=== PATIENT | male | born 1945 | race Caucasian/White ===

== ENCOUNTER 2017-02-25 11:53 | Inpatient (IN) | payer MEDICARE, BC ==
[2017-02-25] MEDS ORDERED: NS 0.9% 1000 ML* 1,000 ML IV ONE ×2 (12:00→14:16)
[2017-02-25 12:15] LABS: Hematocrit 42 % (42-52); Hemoglobin 14.8 g/dl (14.0-18.0); Mean Corpuscular HGB Conc 35 g/dl (31-36); Mean Corpuscular Hemoglobin 27 pg (27-31); Mean Corpuscular Volume 77 fL (80-94); Mean Platelet Volume 8 um3 (7.4-10.4); Red Blood Count 5.51 10^6/ul (4.0-5.4); Red Cell Distribution Width 15 % (10.5-15); White Blood Count 28.1 10^3/ul (3.5-10.8)
[2017-02-25 12:16] LABS: Add Diff/Slide Review? Slide Review Added; Comments Flag Yes
--- NOTE | 2017-02-25 12:33 | RAD ---
HISTORY: Aphasia, fall, right-sided weakness COMPARISONS: None TECHNIQUE: Multiple contiguous axial CT scans were obtained of the cervical spine without intravenous contrast, with coronal and sagittal multiplanar reformations. FINDINGS: BRAIN: The visualized brain is unremarkable CENTRAL CANAL: Evaluation of the central canal is limited on CT technique; however, there is no obvious canalicular mass or epidural hemorrhage. ALIGNMENT: The alignment is normal, without subluxation or dislocation. VERTEBRAL BODIES: There is multilevel anterolateral marginal osteophyte formation. There is no displaced fracture. JOINTS: There is osteoarthritis of the atlantoaxial articulation. There is diffuse uncovertebral and facet osteoarthritis. MUSCULATURE: Unremarkable INTERVERTEBRAL DISCS: There is diffuse loss of intervertebral disc height. AXIAL IMAGES: C2-C3: There is bilateral uncovertebral hypertrophy. There is mild bilateral neural foraminal narrowing. There is no osseous central canal stenosis. C3-C4: There is bilateral uncovertebral and facet hypertrophy. There is severe bilateral neural foraminal narrowing. There is a small central disc protrusion measuring 0.3 cm in depth. There is no significant central canal stenosis. C4-C5: There is a broad-based disc bulge. There is bilateral uncovertebral and facet hypertrophy. There is moderate left and severe right neural foraminal narrowing. There is mild narrowing of the central canal. C5-C6: There is bilateral uncovertebral and facet hypertrophy. There is severe bilateral neural foraminal narrowing. There is mild narrowing of the central canal. C6-C7: There is bilateral uncovertebral hypertrophy. There is moderate bilateral neural foraminal narrowing. There is no osseous central canal stenosis. C7-T1: There is no osseous neural foraminal narrowing or central canal stenosis. SOFT TISSUES: The visualized soft tissues of the neck are unremarkable. The prevertebral fat stripe is preserved. OTHER: None. IMPRESSION: 1. DEGENERATIVE DISC DISEASE AND OSTEOARTHRITIS. 2. THERE IS MILD NARROWING OF THE CENTRAL CANAL AT C4-C5 AND C5-C6. 3. THERE IS MULTILEVEL NEURAL FORAMINAL NARROWING DESCRIBED ABOVE.
[2017-02-25 12:34] LABS: ALT 17 U/L (7-52); AST 30 U/L (13-39); Albumin 4.3 g/dL (3.2-5.2); Alkaline Phosphatase 68 U/L (34-104); Anion Gap 14 mmol/L (2-11); BUN/Creatinine Ratio 42.5 (8-20); Blood Urea Nitrogen 45 mg/dL (6-24); CO2 Carbon Dioxide 35 mmol/L (22-32); Calcium 9.6 mg/dL (8.6-10.3); Chloride 75 mmol/L (101-111); Cholesterol 170 mg/dL; EGFR African American 89.1 (>60); EGFR Non-African American 69.3 (>60); Globulin 2.8 g/dL (2-4); Glucose 174 mg/dL (70-100); HDL Cholesterol 35.8 mg/dL; LDL Cholesterol 104 mg/dL; Sodium 124 mmol/L (133-145); Total Protein 7.1 g/dL (6.4-8.9); Triglycerides 151 mg/dL
--- NOTE | 2017-02-25 12:34 | RAD ---
Indication: Neurologic changes. Aphasia and right-sided weakness. CT of the brain was performed without IV contrast. Ventricular structures are midline. No midline shift is noted. There is central and cortical atrophy noted. There are chronic ischemic White matter changes with hypodensity throughout the periventricular white matter extending into the subcortical white matter. Findings are similar to that seen on May 07, 2013. Mastoid air cells and paranasal sinuses are otherwise unremarkable. IMPRESSION: Central and cortical atrophy. Periventricular lucency and subcortical lucency consistent with chronic ischemic White matter change. Paranasal sinuses are clear. Findings discussed with Dr. Shipman at 12:29 PM.
[2017-02-25 12:44] LABS: Troponin I 0.04 ng/mL (<0.04)
--- NOTE | 2017-02-25 12:58 | RAD ---
Indication: Code junior. Neurologic changes. Single frontal view of the chest performed at 1236 hours was reviewed. Comparison is made with previous exam dated April 15, 2010. No mediastinal shift is noted. Heart is of normal size and configuration. Lung mi appear clear. IMPRESSION: NO ACTIVE CARDIOPULMONARY DISEASE IS NOTED.
[2017-02-25 13:00] LABS: C Reactive Protein 132.46 mg/L (< 5.00)
[2017-02-25] MEDS ORDERED: Aspirin EC Low Dose* 81 MG TAB.EC PO ONE (13:24)
[2017-02-25 13:33] LABS: Urine Bacteria Absent (Absent); Urine Bilirubin Negative (Negative); Urine Glucose Negative (Negative); Urine Nitrite Negative (Negative)
[2017-02-25 13:34] LABS: Alcohol < 10 mg/dL (<10); Lithium 0.16 mmol/L (0.6-1.2)
[2017-02-25] MEDS: KCL 10 MEQ/50 ML IVPREMIX* 10 MEQ/50 ML BAG IV SCH ×5 (13:37→22:29)
[2017-02-25] MEDS ORDERED: Thiamine IV* 100 MG/ML 2 ML VIAL IM ONE (13:43)
[2017-02-25 14:04] LABS: Magnesium 2.5 mg/dL (1.9-2.7)
[2017-02-25] MEDS ORDERED: Ondansetron INJ* 2 MG/ML VIAL IV PRN (14:16)
[2017-02-25] MEDS ORDERED: Acetaminophen TAB* 325 MG PO PRN (14:16)
[2017-02-25] MEDS ORDERED: Dextrose 50% Syringe 50 ML* 25 GM/50 ML SYRINGE IV PUSH PRN (14:22)
[2017-02-25] MEDS ORDERED: PROCHLORPERAZINE INJ 5 MG/ML 2 ML VIAL IV PRN (14:23)
[2017-02-25 14:25] LABS: TSH (Thyroid Stimulating Horm) 2.27 mcIU/mL (0.34-5.60)
[2017-02-25 14:29] LABS: Free T4 1.64 ng/dL (0.61-1.12)
[2017-02-25 14:30] LABS: Benzodiazepine Urine Screen None Detected (None Detect)
[2017-02-25 14:35] LABS: Erythrocyte Sed Rate 23 mm/Hr (0-40)
[2017-02-25 15:03] LABS: Creatine Kinase 130 U/L (10-223)
--- NOTE | 2017-02-25 15:22 | RAD ---
HISTORY: Altered mental status, slurred speech, right facial droop, incontinence COMPARISONS: Head CT dated February 25, 2017 TECHNIQUE: The following sequences were obtained of the head: Sagittal T1-weighted images, axial T2-weighted images, axial FLAIR images, axial susceptibility weighted images, axial T1-weighted images. Additionally, axial diffusion-weighted images were obtained with calculated apparent diffusion coefficients. FINDINGS: HEMORRHAGE/INFARCT: There is associated diffusion consistent with subacute nonhemorrhagic infarct of the left frontoparietal periventricular white matter. Elsewhere, there is no hemorrhage or acute infarct. MASSES/SHIFT: There is no mass or shift. EXTRA-AXIAL SPACES/MENINGES: There are no extra-axial fluid collections. SULCI AND VENTRICLES: There is mild diffuse and proportional enlargement of the sulci and ventricles. CEREBRUM: There is diffusely elevated T2/FLAIR signal in the periventricular and subcortical white matter, including the areas of restricted diffusion noted BRAINSTEM: There are no focal parenchymal abnormalities. CEREBELLUM: There are no focal parenchymal abnormalities. The cerebellar tonsils are normal in size and position. SELLA: The sella is normal. PINEAL: The pineal region is clear. CP ANGLE/TEMPORAL BONES: The labyrinthine structures are grossly normal. VESSELS: Normal flow-voids are noted within the visualized vertebral vasculature. DIFFUSION ABNORMALITIES: As noted above, there are multiple small areas of restricted diffusion within the left frontal and parietal periventricular white matter. PARANASAL SINUSES/MASTOIDS: The paranasal sinuses are clear. There is a small left mastoid effusion. ORBITS: The orbits are unremarkable. BONES AND SOFT TISSUE: No bone or soft tissue abnormalities are noted. OTHER: None IMPRESSION: 1. THERE ARE MULTIPLE SMALL AREAS OF RESTRICTED DIFFUSION WITH A LEFT FRONTAL AND PARIETAL PERIVENTRICULAR WHITE MATTER, CONSISTENT WITH SUBACUTE NONHEMORRHAGIC INFARCT. 2. THERE ARE EXTENSIVE WHITE MATTER CHANGES WITHIN THE PERIVENTRICULAR AND SUBCORTICAL WHITE MATTER BILATERALLY. WHILE NONSPECIFIC, THE DIFFERENTIAL INCLUDES CHRONIC SMALL VESSEL ISCHEMIC CHANGE, WELL THE SEQUELA OF PREVIOUS INFECTION OR INFLAMMATION, INCLUDING VASCULITIS, WELL ADVANCED DEMYELINATING DISEASE..
[2017-02-25] MEDS: cefTRIAXone VIAL(*) 1,000 MG in NS 0.9% 50 ML* 50 ML IVPB SCH ×3 (15:42)
[2017-02-25] MEDS ORDERED: cloNIDine 0.2 MG PATCH* 0.2 MG/24 HR 7 DAY PATCH TRANSDERM SCH (16:00)
[2017-02-25] MEDS: NS 0.9% 1000 ML* 1,000 ML IV SCH (16:11)
[2017-02-25] MEDS: Insulin LISPRO* 1 UNITS UNIT SUBCUT SCH (16:29)
[2017-02-25 16:45] LABS: Venous Bicarbonate HCO3 32.4 mmol/L (24-28)
[2017-02-25] MEDS ORDERED: PROCHLORPERAZINE INJ 5 MG/ML 2 ML VIAL IV ONE (17:00)
--- NOTE | 2017-02-25 19:01 | ED ---
Rc Stratton Angela, scribed for Ras Shipman MD on 02/25/17 at 1204 . Neurological HPI - HPI Summary HPI Summary: MARANDA ESPITIA CALLED OVERHEAD AT 11:58. This pt is a 71 y/o male accompanied by his son presenting to [facility] for a possible stroke. Son reports he found the pt in his apartment. Son states that he calls his father every couple of days to check in and over the last week and today he had no answer from the pt, so he went to his apartment today. Son called the pt 45 minutes to 1 hour ago and found him having difficulty to speak. Son notes that pt opened the door for him upon arriving to his apartment and pt was ambulating. Per son, pt is able to say words but is having difficulty. When asked when the pt fell, he states 3 days ago. Per son, pt had a stroke 1.5 months ago, but his speech was not affected. Son reports the pt at baseline does not have any facial droops and asymmetric smile is not normal. The last time the son saw the pt normal was 1.5 weeks to 2 weeks ago. Per son, the pt lives by himself. PMHx includes CVA. Pt is currently on Insulin, anti-depressants (lithium?). PCP : Dr. Vega. Since arrival to the ED, the son notes no real change in pt. Glucose sugar in the ED is 149. - History of Current Complaint Stated Complaint: POSSIBLE STROKE, Time Seen by Provider: 02/25/17 11:59 Hx Obtained From: Patient, Family/Water Quality Specialist - son Onset/Duration: Still Present Timing: Sudden Onset Neurological Deficit Location: Facial - and speech Character: Paralysis - minor, Impaired Speech Associated Signs and Symptoms: Positive: Impaired Speech - Allergy/Home Medications Allergies/Adverse Reactions: Allergies Allergy/AdvReac Type Severity Reaction Status Date / Time Doxepin Allergy Shakes Verified 02/25/17 12:57 Hydrochlorothiazide Allergy Rash Verified 02/25/17 12:57 Lisinopril Allergy Difficulty Verified 02/25/17 12:57 Breathing Home Medications: Home Medications Atorvastatin* [Lipitor*] 20 mg PO DAILY 02/25/17 [History Confirmed 02/25/17] BuPROPion XL* [Bupropion XL*] 300 mg PO DAILY 02/25/17 [History Confirmed ] Gabapentin CAP(*) [Neurontin 100 mg CAP(*)] 100 mg PO QAM 02/25/17 [History Confirmed 02/25/17] Gabapentin CAP(*) [Neurontin 300 CAP(*)] 600 mg PO BEDTIME 02/25/17 [History Confirmed 02/25/17] Insulin Aspart [Novolog Flexpen] 10 unit SUBCUT TID WITH MEALS 02/25/17 [ History Confirmed 02/25/17] Insulin GLARGINE(*) [Lantus(*)] 50 units SUBCUT BID 02/25/17 [History Confirmed 02/25/17] [place] Carbonate ER (NF) 300 mg PO BEDTIME 02/25/17 [History Confirmed 02/25/17 ] Losartan TAB* [Cozaar TAB*] 50 mg PO DAILY 02/25/17 [History Confirmed 02/25/17] Metoprolol Tartrate TAB* [Lopressor TAB*] 25 mg PO BID 02/25/17 [History Confirmed 02/25/17] Mirtazapine TAB* [Remeron TAB*] 15 mg PO BEDTIME 02/25/17 [History Confirmed ] buPROPion SR TAB* [Wellbutrin SR TAB*] 150 mg PO BID 02/25/17 [History Confirmed 02/25/17] busPIRone TAB* [Buspar TAB*] 10 mg PO BID 02/25/17 [History Confirmed 02/25/17] cloNIDine 0.2 MG PATCH* [Xnigmqxz-Aoh-0 0.2 mg Patch*] 0.2 mg TRANSDERM Q7D [History Confirmed 02/25/17] metFORMIN* [Glucophage 500 MG TAB *] 500 mg PO BID 02/25/17 [History Confirmed 02/25/17] PMH/Surg Hx/FS Hx/Imm Hx Cardiovascular History: Reports: Hx Hypercholesterolemia, Hx Hypertension Musculoskeletal History: Reports: Other Musculoskeletal History - foot fracture with repair Psychiatric History: Reports: Hx Attention Deficit Hyperactivity Disorder, Hx Substance Abuse Denies: Hx Eating Disorder, Hx of Violent Episodes Against Others - Cancer History Cancer Type, Location and Year: prostate cs - Surgical History Surgery Procedure, Year, and Place: deviated septal repair. prostate removal. uvula reduction. right ankle foot repair Infectious Disease History: Denies: Traveled Outside the [place] in Last 30 Days - Family History Known Family History: Positive: Other - Mother: anxiety and depression - Social History Alcohol Use: None Substance Use Type: Reports: Marijuana Review of Systems Negative: Fever, Chills Negative: Erythema Negative: Sore Throat Negative: Chest Pain Negative: Shortness Of Breath, Cough Negative: Abdominal Pain, Vomiting, Nausea Negative: dysuria, hematuria Negative: Myalgia, Edema - leg Negative: Rash Neurological: Negative - dizziness, Other - difficulty speaking, facial droop All Other Systems Reviewed And Are Negative: Yes Physical Exam - Summary Physical Exam Summary: Constitutional: Well-developed, Well-nourished, Alert. (-) Distressed Skin: Warm, Dry HENT: Normocephalic; Atraumatic Eyes: Conjunctiva normal Neck: Musculoskeletal ROM normal neck. (-) JVD, (-) Stridor, (-) Tracheal deviation Cardio: Rhythm regular, rate normal, Heart sounds normal; Intact distal pulses; The pedal pulses are 2+ and symmetric. Radial pulses are 2+ and symmetric. (-) Murmur Pulmonary/Chest wall: Effort normal. (-) Respiratory distress, (-) Wheezes, (-) Rales Abd: Soft. (-) Tenderness, (-) Distension, (-) Guarding, (-) Rebound Musculoskeletal: (-) Edema Lymph: (-) Cervical adenopathy Neuro: Alert, Oriented x3, Strength normal, (-) Nystagmus, (-) Ataxia by finger to nose testing, (-) Sensory deficit. There is some dysmetria from finger to nose on right hand. There is right facial droop. Smile is asymmetric. There is right pronator drift. Psych: Mood and affect Normal Triage Information Reviewed: Yes Vital Signs Reviewed: Yes Diagnostics - Laboratory Result Diagrams: 02/25/17 12:05 02/25/17 12:05 Lab Statement: Any lab studies that have been ordered have been reviewed, and results considered in the medical decision making process. - Radiology Chest XR Xray Interpretation: No Acute Changes - IMPRESSION: No active cardiopulmonary disease is noted. ED physician has reviewed this radiology report and agrees. Radiology Interpretation Completed By: Radiologist - CT Brain CT CT Interpretation: Positive (See Comments) - IMPRESSION: Central and cortical atrophy. Periventricular lucency and subcortical lucency consistent with chronic ischemic white matter change. Paranasal sinuses are clear. ED physician has reviewed this radiology report and agrees. CT Interpretation Completed By: Radiologist Cervical spine CT CT Interpretation: No Acute Changes - IMPRESSION: 1. Degenerative disc disease and osteoarthritis. 2. There is mild narrowing of the central canal at C4-C5 and C5-C6. 3. There is multilevel neural foraminal narrowing as described above. ED physician has reviewed this radiology report and agrees. CT Interpretation Completed By: Radiologist - EKG 1226 Cardiac Rate: NL EKG Rhythm: Sinus Rhythm - at 88 bpm EKG Interpretation: No STEMI NIH Scale - NIH Scale Level of Consciousness: Alert/Keenly Responsive Ask Patient the Month and His/Her Age: Both Correct Ask Pt to Open/Close Eyes and Ceramic Tile Installation Helper/Release Non-Paretic Hand: Both Correctly Best Gaze (Only Horizontal Eye Movement): Normal Visual Field Testing: No Visual Loss Facial Paresis-Pt to Smile & Close Eyes or Grimace Symmetry: Minor Paralysis Motor Function - Right Arm: No Drift-Holds 10 Seconds Motor Function - Left Arm: No Drift-Holds 10 Seconds Motor Function - Right Leg: No Drift-Holds 10 Seconds Motor Function - Left Leg: No Drift-Holds 10 Seconds Limb Ataxia-Must be out of Proportion to Weakness Present: Present in One Limb Sensory (Use Pinprick to Test Arms/Legs/Trunk/Face): Normal Best Language (Describe Picture, Name Items): Some Loss Dysarthria (Read Several Words): Slurs Some Words Extinction and Inattention: No Abnormality Total Score: 4 Course/Dx - Course Assessment/Plan: This pt is a 71 y/o male accompanied by his son presenting to [facility] for a possible stroke. Son reports he found the pt in his apartment. Son states that he calls his father every couple of days to check in and over the last week and today he had no answer from the pt, so he went to his apartment today. Son called the pt 45 minutes to 1 hour ago and found him having difficulty to speak. Son notes that pt opened the door for him upon arriving to his apartment and pt was ambulating. Per son, pt is able to say words but is having difficulty. When asked when the pt fell, he states 3 days ago. Per son, pt had a stroke 1.5 months ago, but his speech was not affected. Son reports the pt at baseline does not have any facial droops and asymmetric smile is not normal. The last time the son saw the pt was 1.5 weeks to 2 weeks ago, and the pt was normal. Maranda Espitia was called in the ED. Lab work, Chest XR, CT brain, CT cervical spine, and EKG were obtained. Labs are significant for WBC of 28.1, sodium of 124, potassium of 3.0, glucose of 174, CRP of 132.46, troponin of 0.04. Chest XR shows no active cardiopulmonary disease is noted. Brain CT shows central and cortical atrophy. Periventricular lucency and subcortical lucency consistent with chronic ischemic white matter change. Paranasal sinuses are clear. Cervical spine CT reveals 1. Degenerative disc disease and osteoarthritis. 2. There is mild narrowing of the central canal at C4-C5 and C5- C6. 3. There is multilevel neural foraminal narrowing as described above. EKG shows no STEMI. Dr. Cornell came and assessed the pt in the ED. I discussed the pt's case with Dr. Vera, who has agreed to admit the pt. - Diagnoses Provider Diagnoses: Hyponatremia, Hypokalemia, Leukocytosis, CVA (cerebral vascular accident) During the Visit The Following Alert/Code Occurred: Maranda Espitia - 11:58 - Physician Notifications Discussed Care Of Patient With: Nikita Vera Instructed by Provider To: Other - I discussed the pt's case with Dr. Vera, who has agreed to admit the pt. - Critical Care Time Critical Care Time: 30-74 min - 60 minutes Discharge - Discharge Plan Condition: Stable Disposition: ADMITTED TO [facility] The documentation as recorded by the Rc fontenot Angela accurately reflects the service I personally performed and the decisions made by , Ras Shipman MD.
[2017-02-25 20:15] LABS: Potassium 2.8 mmol/L (3.5-5.0)
[2017-02-25 20:16] LABS: BUN/Creatinine Ratio 38.5 (8-20); Calcium 8.2 mg/dL (8.6-10.3); EGFR African American 99.9 (>60); EGFR Non-African American 77.7 (>60)
[2017-02-25 20:17] LABS: Troponin I 0.02 ng/mL (<0.04)
[2017-02-25] MEDS ORDERED: Potassium Chlor TAB* 20 MEQ TAB.ER PO ONE (20:19)
[2017-02-25] MEDS: Omeprazole CAP* 20 MG PO SCH (21:43)
[2017-02-25] MEDS: Metoprolol Tartrate TAB* 25 MG PO SCH (21:44)
[2017-02-25] MEDS: Insulin GLARGINE(*) 1 UNITS UNIT SUBCUT SCH (21:45)
[2017-02-25] MEDS ORDERED: KCL premix 10MEQ/50 ML x 1 TIME IV ONE (22:00)
--- NOTE | 2017-02-25 22:23 | CONS ---
NEUROLOGY CONSULTATION REPORT: DATE OF CONSULT: 02/25/17 REFERRING PROVIDER: Dr. Ras Shipman. PRIMARY CARE PROVIDER: Dr. Tennille Vega. LOCATION: He is in the emergency to be admitted. CHIEF COMPLAINT: Diminished responsiveness, weakness. HISTORY OF PRESENT ILLNESS: Rashaun Padilla is a 71-year-old right-handed man who was last seen by his son about 3 days ago when he went to visit him this morning. He got there about 11 and Rashaun answered the door naked. The house was a mess with feces and urine about. He had a bruise over his right eye. He was brought into the emergency room and a Code Sharma was called. Six weeks ago, he has had right- sided weakness and difficulty with language and presented to his primary care physician a week after onset of symptoms. This history was from his son largely as the patient is psychomotorically slow and I do not have any other records yet. He apparently was evaluated as an outpatient, but I do not have any other details. The patient says he stopped taking his medications some number of days ago because he "lost patience." He admits he has not been eating and he says he has been drinking water. He has a history of psychiatric disease with 2 prior psychiatric hospitalizations. He had hospitalization in the mental health unit in 2013, when he was drinking heavily and using cannabis and was having some delusional thinking. He has a history of depression as well. He also apparently has a history of diabetes and says he has not been taking his medications. He says he fell out of this "tripod bed" several days ago. He responds very sluggishly and is hard to get a coherent history out of him. He has multiple electrolyte abnormalities and an elevated white blood cell count described below. PAST MEDICAL HISTORY: Notable for psychiatric disorder; alcoholism; prostate adenocarcinoma, treated with surgery; history of pyloric stenosis; hypertension ; gastroesophageal reflux. MEDICATIONS: We do not have an up-to-date medication list and he has not been taking any medicines, he says. ALLERGIES: He listed he is having allergies to LISINOPRIL, HYDROCHLOROTHIAZIDE , and DOXEPIN. SOCIAL HISTORY: He says he has not been drinking alcohol. He still smokes. He is . He lives alone. PHYSICAL EXAM: He is disheveled with tobacco stains in his fingers and is generally unkempt and unwashed. Temperature 98 degrees by temporal scan, blood pressure running about 130 to 140 systolic over 70 to 80 diastolic. Heart rate is in the 90s and is sinus on the monitor, respiratory rate 23, oxygen saturation is 98% on room air. He has ecchymosis, which looks at least a couple of days old over his right lateral eyebrow. Head is otherwise atraumatic. Oral mucosa is moist and atraumatic. Neck is supple. Heart is in a regular rhythm with distant heart tones and I do not hear murmurs. Lungs reveal few scattered wheezes. Carotid pulses are hard to hear as he is hiccupping fairly constantly, but I do not hear any bruits. Neurologically, pupils react equally from 4 to 3 mm. Eye movements are full with nystagmus in extremes of lateral gaze. Visual mi are full to finger counting in all 4 quadrants. Facial musculature is notable for central pattern right lower facial weakness. Facial sensation to pin and light touch is symmetric. Palate and tongue appear normal and tongue protrudes in the midline. He has mild buccal dysarthria. Hearing seems intact. Neck strength seems intact. Motor exam reveals a mild spastic catch in the right leg. He has a right pronator drift. He has a grade 4 right hip flexor weakness. He has pretty normal strength in left arm and leg. Finger taps are slow and clumsy bilaterally, much worse on the right. Sensory exam is intact to light touch in the distal extremities symmetrically. Sensory exam to pin is symmetrical in upper and lower extremities. Reflexes are intact and symmetric in biceps, triceps, and brachioradialis, and knees. Ankle reflexes are absent bilaterally. Plantar response is flexor on the left and he has a right Babinski sign. He is semi alert and psychomotorically slow. He is able to converse throughout the visit without disruption in consciousness. He has no word-finding difficulty and is somewhat dysarthric. Some of the words seemed to be nonsense words. He is a poor historian with clearly impaired memory. DIAGNOSTIC STUDIES/LAB DATA: Includes a CT of the brain which I reviewed and which reveals multifocal areas of subcortical hypodensity consistent with severe chronic ischemic disease. CT scan of the cervical spine reveals arthritis, but no acute traumatic changes. EKG reveals a prolonged QT interval and a short FL interval. Chemistry profile is floridly abnormal with sodium 124, potassium 3.0, chloride 75, carbon dioxide 35, anion gap 14, BUN 45, and creatinine 1.06. Glucose is elevated at 174, total bilirubin elevated 1.8, lactic acid normal at 1.8, and calcium at 9.6. Albumin is 4.3. Troponin is borderline at 0.04. INR is elevated at 1.41. CBC notable for white blood cell count 28.1 with slight left shift, 84.5% neutrophils. Hemoglobin is 14.8, MCV low at 77, platelet count 290 ,000. A urinalysis notable for specific gravity 1.023, pH 5.0, 1+ ketones, 1+ blood, positive urobilinogen. Leukocyte esterase is negative and there is trace white blood cells and absent bacteria. Alcohol level is undetectable, lithium level is present, but low at 0.16. IMPRESSION AND PLAN: Impression is that of recent cerebrovascular event, but currently major metabolic disorder including acidosis and possibly hepatic insufficiency given his history of alcoholism. His liver enzymes are normal but his total bilirubin is elevated as his INR. Discussed my impression with Dr. Shipman and Tavo Alarcon, YOLANDA, is currently starting his evaluation of Mr. Padilla. He has been given some supplemental potassium and I have written for 100 mg of IM thiamine. I recommended MRI of the brain to see if there has been recent infarction or acute infarction and aspirin 81 mg and hold off on further dose of aspirin until we get the MRI and make sure that he is not having any intestinal bleeding given his history of intestinal problems and his low MCV. Also, he may be more anemic than is evident that he is likely dehydrated and that may change. I follow him along with you. [id number]/[facility] #: [id number] [facility]
--- NOTE | 2017-02-25 23:38 | HP ---
CC: Dr. Vega; Dr. Cornell * HISTORY AND PHYSICAL: DATE OF ADMISSION: 02/25/17 PRIMARY CARE PROVIDER: Dr. Vega. ATTENDING PHYSICIAN WHILE IN THE HOSPITAL: Nikita Vera MD * (report dictated by Tavo Alarcon NP). CONSULTING NEUROLOGIST: Dr. Cornell. CHIEF COMPLAINT: 1. Right-sided weakness. 2. Altered mental status. HISTORY OF PRESENT ILLNESS: Mr. Padilla is a 71-year-old male patient who about 6 weeks ago had a CVA. He actually was worked up as an outpatient because he did not present for 1 week after his symptoms and he had apparently a workup done at [facility]. We will try to get those records. He apparently comes in today. He is a vague historian. He does have difficulty with expressive aphasia, which his son says that it seems much worse. Apparently the last week, the patient has been having some nausea and vomiting. No abdominal pain. No fevers or chills. No reports of URI type symptoms. No reports of arthralgias or myalgias and no recent sick contacts the son is aware of. He apparently 3 days ago fell, it is unclear how long he was on the floor for. The patient did report that he has been vomiting 3 to 4 times a day. He has been having more difficulty with saying his words. I ask him if he feels like the words are on the tip of his tongue and he just cannot get them out and he says, yes. The son called him 3 days ago, had no response. Called him yesterday, no response. Today he called again, no response and decided he is going to check on his father which he did. The patient apparently has not been taking his medications in the last week. He has been having difficulty with vomiting. He denies having any shortness of breath or chest pain. He says he has not noticed any rashes. He says he has not been eating or drinking. He came into the ED because when the son found him today, he was notably more confused, having trouble with his words. He was covered in feces, so they brought him into the ER and he was evaluated and found to have several lab abnormalities and we were asked to evaluate for admission. PAST MEDICAL HISTORY: Significant for: 1. Pyloric stenosis. 2. Hypertension. 3. GERD. 4. CVA. 5. Diabetes. 6. Prostate cancer. 7. Hyperlipidemia. 8. Bipolar disorder. 9. Depression. 10. Anxiety. PAST SURGICAL HISTORY: He has had a prostatectomy. MEDICATIONS: Home meds include: 1. Norvasc 10 mg daily. 2. Lipitor 20 mg daily. 3. BuSpar 10 mg p.o. b.i.d. 4. Wellbutrin 150 mg p.o. b.i.d. 5. Cozaar 50 mg daily. 6. Gabapentin 600 mg at bedtime, 100 mg in the morning. 7. Bupropion XL 300 mg p.o. daily. 8. He is also on metformin 500 mg p.o. b.i.d. 9. Prilosec 20 mg b.i.d. 10. Multivitamin 1 tablet daily. 11. Remeron 15 mg p.o. at bedtime. 12. Lopressor 25 mg p.o. b.i.d. 13. Posey carbonate 300 mg p.o. at bedtime. 14. Lantus 50 units subcu b.i.d. 15. Insulin aspart 10 units subcu t.i.d. with meals. 16. Clonidine 0.2 mg patch every 7 days. ALLERGIES TO MEDICATIONS: Include DOXEPIN, HYDROCHLOROTHIAZIDE, and LISINOPRIL. FAMILY HISTORY: I specifically asked the patient if his mother or father did have any heart disease, strokes or cancers, he denied. He states they just of old age. SOCIAL HISTORY: He does not smoke. He does smoke marijuana daily. He does not drink alcohol. Surrogate decision maker is his son, Star. REVIEW OF SYSTEMS: There is no documented fever. Denied any significant weight change. There was no double vision. Denies having any ear discharge. No rhinorrhea. No sore throat. No thyroid enlargement. Denied any chest pain. No orthopnea. No nocturnal dyspnea. There was no abdominal pain. There was some nausea and vomiting. No dysuria. No frequency. No loss of consciousness was reported. There was a fall. No pruritus. No skin ulcerations. Review of 14 systems completed, all others negative. PHYSICAL EXAMINATION GENERAL: At this time, Mr. Padilla is a 71-year-old male patient. He is chronically ill appearing. He is sitting in the ER stretcher. He does not appear to be in any acute distress. VITAL SIGNS: Blood pressure 137/69 with a pulse of 86, respirations were 20, O2 sat 98%, temperature 98. HEENT: Head atraumatic. Eyes: EOMs are intact. Sclerae anicteric and not pale. NECK: Supple. Throat: Oral mucosa appears to be dry, no oropharyngeal erythema. LUNGS: Clear to auscultation bilaterally. No wheezes, rales, or rhonchi. HEART: Sounds S1 and S2. No murmurs, rubs, or gallops. ABDOMEN: Soft. It was flat. It was nontender. Bowel sounds were present. EXTREMITIES: Pulses were 2+ throughout. He has 4/5 strength on the right side , 5/5 strength on the left side. No peripheral edema. NEUROLOGIC: He is awake. He is alert. He is confused to month and time, but he says he knows the month, but he cannot say it. He definitely has expressive aphasia. He has a facial droop on the right side. He has to the right upper extremity and weakness noted to the right side compared to the left. No other gross focal deficits. His cranial nerves were intact. SKIN: Intact with exception he has a diffuse petechial rash noted to his sacrum and maybe to his back as well. No other open areas are noted. DIAGNOSTIC STUDIES/LAB DATA: WBC of 28.1, RBC of 5.51, hemoglobin 14.8, hematocrit 42, platelet count of 290,000. INR 1.41, PTT 29.9. His sodium is 124, potassium is 3, chloride of 74. His bicarb is 35. His BUN was 45, his creatinine was 1.06, glucose of 174, lactic 1.8, calcium of 9.6, mag 2.5, total bilirubin 1.8, AST 30, ALT 17, alk phos 68. Ammonia was normal. CK pending. Troponin 0.04. CRP of 132. Albumin 4.3. His LDH is 104. His TSH is normal at 2.27. Urine showed 1+ ketones, 1+ blood. Positive urobilinogen. Toxicology had a low lithium level and a negative alcohol level. Cervical spine CT showed, impression: Degenerative disk disease and osteoarthritis. There is mild narrowing of the central canal at C4-5 and C5-6, multilevel neuroforaminal narrowing as described. Chest x-ray shows no active cardiopulmonary disease. Brain CT showed, impression: Central and cortical atrophy, periventricular lucency and subcortical lucency consistent with chronic ischemic white matter change. Paranasal sinuses are clear. EKG shows a sinus rhythm with a rate of 88. He does have LVH. No ST elevation noted. His QTC was 539. Old medical records were reviewed. ASSESSMENT AND PLAN: Mr. Padilla is a 71-year-old male patient coming into the ER today with complaints of nausea and vomiting, in addition to this, altered mental status. The patient was evaluated here in the ED and the hospitalist service was asked to evaluate due to altered mental status and possible cerebrovascular accident. He will be admitted under inpatient status for: 1. Altered mental status. Etiology is unclear. I questioned if he is having exacerbation of his stroke due to dehydration, underlying infection possibly viral or bacterial. He does have a white count of 28,000. My plan is to get panculture the patient. Keep him on Rocephin for time being. Frequent neuro checks. Dr. Cornell did evaluate him. I am concerned that he may have fallen, his CK could be profoundly elevated. He does have several abnormalities in his electrolytes, which I think is from dehydration from his vomiting. I will check a flu swab. We will follow him closely. I will get neuro checks as well and MRI of the brain is pending. 2. Petechial rash. Again etiology is unclear. It could be vasculitis. I did send off a vasculitis panel, but the distribution of the rash looks like it could be from pressure areas and he may have been on the floor for sometime and it is unclear, he does not really remember. My plan will be to again send off vasculitis panel. I am going to check HIV. I am going to continue him on Rocephin. In addition to this, we will again get the CK and see what that shows. 3. Recent cerebrovascular accident. At this point, I will continue aspirin as ordered by Dr. Cornell. For secondary prevention, we will continue his statin therapy, get the MRI, and we will get again neuro checks and he is going to be placed on telemetry. 4. Prolonged QTC. Again, he will be placed on telemetry. I am holding his psychiatric medications for time being, as this may certainly be contributing and we will continue to follow. 5. Hypertension. Continue medications as prescribed. We will monitor this on telemetry. We will hold the psychotropic medications and we will continue to follow this closely. 6. History of diabetes. Lispro sliding scale. 7. Prostate cancer. Follow with primary. 8. History of anxiety, depression, bipolar. Again, at this point, it appears to be stable. We will hold his psychiatric medications until the QTC comes down , as I do note that some of these can be prolonging these. 9. Hyperlipidemia. Continue statin therapy. 10. Elevated troponins. It is probably secondary to demand ischemia. He does appear to have an underlying infection. We will trend these. He is not having any chest pain. His EKG is stable with the exception of QTC prolongation. If it continues to elevate, we will get cardiology input. I will continue his aspirin, beta reji, and statin for the time being. 11. Hypokalemia. We are replacing this with IV potassium. 12. Hyponatremia probably secondary to dehydration. We are going to hydrate him and repeat the BNP later today. 13. DVT prophylaxis. I am going to place him on SCDs because of the petechial rash. 14. Code status: He requested to be a DNR. We will fill out a MOLST MRI now. 15. Fluids, electrolytes, and nutrition: He can have a consistent carb diet. TIME SPENT: On this admission approximately 60 minutes, greater than half the time was spent [id number] with the patient obtaining my history and physical, other half the time was spent going over the plan of care with the patient, implementing the plan of care. I discussed the plan of care with my attending Dr. Vera, he is in agreement. TAVO ALARCON, YOLANDA [id number]/CPS #: [id number] MADELEINE
[2017-02-26] MEDS: NS 0.9% 1000 ML* 1,000 ML IV SCH ×2 (01:05→13:15)
[2017-02-26 06:59] LABS: Hematocrit 40 % (42-52); Hemoglobin 13.7 g/dl (14.0-18.0); Mean Corpuscular HGB Conc 34 g/dl (31-36); Mean Corpuscular Hemoglobin 27 pg (27-31); Mean Corpuscular Volume 77 fL (80-94); Mean Platelet Volume 8 um3 (7.4-10.4); Red Blood Count 5.16 10^6/ul (4.0-5.4); Red Cell Distribution Width 15 % (10.5-15); White Blood Count 15.8 10^3/ul (3.5-10.8)
[2017-02-26 07:11] LABS: BUN/Creatinine Ratio 33.8 (8-20); Blood Urea Nitrogen 26 mg/dL (6-24); CO2 Carbon Dioxide 27 mmol/L (22-32); Calcium 8.3 mg/dL (8.6-10.3); Chloride 92 mmol/L (101-111); EGFR African American 128.8 (>60); EGFR Non-African American 100.2 (>60); Glucose 65 mg/dL (70-100); Sodium 130 mmol/L (133-145)
[2017-02-26] MEDS: Insulin LISPRO* 1 UNITS UNIT SUBCUT SCH ×3 (07:39→17:07)
[2017-02-26 07:40] LABS: Anion Gap 11 mmol/L (2-11)
[2017-02-26] MEDS: amLODIPine TAB* 5 MG PO SCH ×2 (08:20→08:48)
[2017-02-26] MEDS: Aspirin Low Dose CHEW TAB* 81 MG PO SCH (08:20)
[2017-02-26] MEDS: Metoprolol Tartrate TAB* 25 MG PO SCH ×4 (08:20→20:49)
[2017-02-26] MEDS: Omeprazole CAP* 20 MG PO SCH ×2 (08:20→20:49)
[2017-02-26] MEDS: Atorvastatin* 20 MG TAB PO SCH (08:20)
[2017-02-26] MEDS: Insulin GLARGINE(*) 1 UNITS UNIT SUBCUT SCH (08:23)
[2017-02-26] MEDS ORDERED: Pneumococcal *Vac Polyvalent 0.5 ML VIAL IM ONE (09:00)
[2017-02-26] MEDS ORDERED: Influenza VAC *QUAD* 2017-18* 0.5 ML SYRINGE IM ONE (09:00)
[2017-02-26 12:59] LABS: BUN/Creatinine Ratio 31.1 (8-20); Calcium 8.2 mg/dL (8.6-10.3); EGFR African American 134.9 (>60); EGFR Non-African American 104.9 (>60); Potassium 3.4 mmol/L (3.5-5.0)
[2017-02-26] MEDS ORDERED: Iohexol 350* (CONTRAST) 500 ML MDV IV ONE (13:35)
[2017-02-26] MEDS ORDERED: Iodixanol 320 (CONTRAST) 100 ML SDV IV ONE (13:38)
[2017-02-26] MEDS: KCL 20 MEQ/100 ML IVPREMIX* 20 MEQ/100 ML BAG IV SCH ×2 (13:49→21:58)
[2017-02-26] MEDS: cefTRIAXone VIAL(*) 1,000 MG in NS 0.9% 50 ML* 50 ML IVPB SCH (16:42)
--- NOTE | 2017-02-26 17:37 | PN ---
Subjective Date of Service: 02/26/17 Interval History: Leukocytosis improved. Pt with some expressive aphasia and NOT reliable historian. Relates he did not eat anything for a week but still taking his lantus 50U BID and had sugars in 100s. BG to 65 this AM. Some choking with breakfast. Put on mechanical ground, nectar thick liquids. Neuro evaluated CT head neck angiogram and ECHO ordered. Son had talked to father 10 days prior then was getting no-pickups to phone calls. Objective Active Medications: Acetaminophen (Tylenol Tab*) 650 mg PO Q4H PRN PRN Reason: FEVER/PAIN Amlodipine Besylate (Norvasc Tab*) 10 mg PO DAILY [facility] Last Admin: 02/26/17 08:48 Dose: Not Given Aspirin (Aspirin Low Dose Tab*) 81 mg PO DAILY [facility] Last Admin: 02/26/17 08:20 Dose: 81 mg Atorvastatin Calcium (Lipitor*) 20 mg PO DAILY [facility] Last Admin: 02/26/17 08:20 Dose: 20 mg Dextrose (D50w Syringe 50 Ml*) 12.5 gm IV PUSH .FOR FS < 60 - SS PRN PRN Reason: FS < 60 Sodium Chloride (Ns 0.9% 1000 Ml*) 1,000 mls @ 125 mls/hr IV PER RATE [facility] Last Admin: 02/26/17 13:15 Dose: 125 mls/hr Ceftriaxone Sodium 1,000 mg/ (Sodium Chloride) 50 mls @ 200 mls/hr IVPB 1600 [facility] Last Admin: 02/26/17 16:42 Dose: 200 mls/hr Potassium Chloride (Potassium Chloride 20 Meq/100 Ml Ivpremix*) 20 meq in 100 mls @ 50 mls/hr IV Q2H [facility] Stop: 02/26/17 18:59 Last Admin: 02/26/17 13:49 Dose: 50 mls/hr Insulin Human Lispro (Humalog*) 0 units SUBCUT AC [facility] PRN Reason: Protocol Last Admin: 02/26/17 17:07 Dose: Not Given Metoprolol Tartrate (Lopressor Tab*) 25 mg PO BID [facility] Last Admin: 02/26/17 08:49 Dose: Not Given Omeprazole (Prilosec Cap*) 20 mg PO BID [facility] Last Admin: 02/26/17 08:20 Dose: 20 mg Prochlorperazine Edisylate (Compazine Inj*) 5 mg IV Q6H PRN PRN Reason: NAUSEA/VOMITING Last Admin: 02/25/17 14:36 Dose: 5 mg Vital Signs 02/25/17 02/25/17 02/25/17 19:19 20:00 23:41 Temperature 98.8 F 98.4 F Pulse Rate 88 70 Respiratory 17 18 20 Rate Blood Pressure 118/70 110/60 (mmHg) O2 Sat by Pulse 98 97 Oximetry 02/26/17 02/26/17 02/26/17 04:11 07:50 07:51 Temperature 98.6 F Pulse Rate 63 Respiratory 20 20 20 Rate Blood Pressure 115/69 (mmHg) O2 Sat by Pulse 99 Oximetry 02/26/17 02/26/17 02/26/17 07:57 12:16 15:43 Temperature 98.1 F 99.4 F 97.8 F Pulse Rate 58 62 65 Respiratory 16 16 20 Rate Blood Pressure 125/65 116/52 124/63 (mmHg) O2 Sat by Pulse 100 100 96 Oximetry Oxygen Devices in Use Now: None Appearance: NAD, sitting in bed. Eyes: No Scleral Icterus, PERRLA Ears/Nose/Mouth/Throat: NL Teeth, Lips, Gums, Mucous Membranes Moist Neck: NL Appearance and Movements; NL JVP, Trachea Midline Respiratory: Symmetrical Chest Expansion and Respiratory Effort, Clear to Auscultation Cardiovascular: NL Sounds; No Murmurs; No JVD, RRR Abdominal: NL Sounds; No Tenderness; No Distention Extremities: No Edema Skin: - - petechia on lower back, nonpruritic. Neurological: - - Oriented to [facility]. CUMMINS. right nasolabial fold droop. expressive aphasia and delayed speech overall. Result Diagrams: 02/26/17 06:08 02/26/17 10:26 Microbiology and Other Data: Microbiology 02/25/17 16:37 Aerobic Blood Culture - Preliminary Blood Venous No Growth Day 1 Anaerobic Blood Culture - Preliminary No Growth Day 1 02/25/17 14:35 Influenza Types A,B Antigen (CHARMAINE) - Final Nasal Specimen received for Influenza A/B Molecular testing Assess/Plan/Problems-Billing Assessment: 71 yo male PMH recent (6wk prior) CVA, HTN, IDDM, prostate cancer, bipolar, depression, pyloric stenosis, GERD p/w with AMS, fall, neglect of self care and reported no po intake for 1 week. fever, petechial rash. On ceftriaxone. Improved mental status. completion of CVA workup which was diagnosed as outpatient with late presentation. - Patient Problems (1) CVA (cerebral vascular accident) Current Visit: Yes Status: Acute Code(s): I63.9 - CEREBRAL INFARCTION, UNSPECIFIED SNOMED Code(s): 374545264 Comment: Appreciate Neuro recs MRI with subacute infarct left frontal parietal. CVA ~6 weeks ago, late presentation w/ unclear outpatient w/u CTA head/neck pending. Son consented ECHO pending aspirin 81mg lipitor 20mg daily Denies Hx of Afib (2) IDDM (insulin dependent diabetes mellitus) Current Visit: Yes Status: Acute Code(s): E11.9 - TYPE 2 DIABETES MELLITUS WITHOUT COMPLICATIONS; Z79.4 - MCC (CURRENT) USE OF INSULIN SNOMED Code( s): 14288554 Comment: at home was on 50U lantus BID. got 25U this AM, have held given hypoglycemia to 60s prior and poor po intake. SSI, POCT qac qhs (3) Altered mental status Current Visit: Yes Status: Acute Code(s): R41.82 - ALTERED MENTAL STATUS, UNSPECIFIED SNOMED Code(s): 108865374 Comment: likely toxic metabolic in setting of subacute CVA. Improved on CFTX , IVF, nutrition. still with expressive aphasia (4) Fever Current Visit: Yes Status: Acute Code(s): R50.9 - FEVER, UNSPECIFIED SNOMED Code(s): 358972570 Comment: Blood Culture NGTDx1. UA not concerning for infection. CXR clear. Continue empiric Ceftriaxone f/u ANCA. was concern for vasculitis given petechial rash. Was reportedly naked , covered in feces, could be component of dermatitis from that given mostly lower back/sacrum. (5) HTN (hypertension) Current Visit: Yes Status: Acute Code(s): I10 - ESSENTIAL (PRIMARY) HYPERTENSION SNOMED Code(s): 73743909 Comment: continue home amlodipine 10 daily and metoprolol 25mg BID (6) GERD (gastroesophageal reflux disease) Current Visit: Yes Status: Acute Code(s): K21.9 - GASTRO-ESOPHAGEAL REFLUX DISEASE WITHOUT ESOPHAGITIS SNOMED Code(s): 251203004 Comment: prilosec 20mg po bid (7) Living alone Current Visit: Yes Status: Acute Code(s): Z60.2 - PROBLEMS RELATED TO LIVING ALONE SNOMED Code(s): 984938898 Comment: Patient will likely need rehab but don't think current situation living alone will be a safe one going forward. (8) SIRS (systemic inflammatory response syndrome) Current Visit: Yes Status: Acute Code(s): R65.10 - SIRS OF NON-INFECTIOUS ORIGIN W/O ACUTE ORGAN DYSFUNCTION SNOMED Code(s): 078481555 Comment: fever, leukocytosis, HR>90. Briefly tachypneic, on room air. Unclear source. Status and Disposition: medicine inpatient. Attending: Lj Paul
[2017-02-26] MEDS ORDERED: Iodixanol* (CONTRAST) 320 MG/ML 100 ML SDV IV ONE (17:59)
--- NOTE | 2017-02-26 22:25 | RAD ---
CPT II: CPT II Codes: 3100F INDICATION: Altered mental status, slurred speech, right facial droop and incontinence. Recent MRI shows multiple focal infarctions in the left frontal and parietal lobes. COMPARISON: MRI of the brain February 25, 2017 TECHNIQUE: A CT angiogram of the head and neck was performed with 80 cc of Visipaque 320. Contiguous axial sections were obtained from the thoracic inlet through the sh[place] of [place]. Images were reconstructed in the sagittal, coronal planes and in a 3-D volume rendered format. The distal cervical internal carotid artery diameter is used as the denominater for stenosis measurement. CTA NECK: The common and internal carotid arteries are patent without hemodynamically significant stenosis. Right: Below the carotid bifurcation the common carotid artery measures 6 mm in diameter. There is mixed attenuation atherosclerosis at the right carotid bulb causing diameter narrowing to 4 mm. This yields approximately 33% degree stenosis at the right carotid bulb. Left: Below the carotid bifurcation the common carotid artery measures 7 mm in diameter. At the junction of the carotid bulb and left internal carotid artery there is mixed attenuation atherosclerosis narrowing the lumen to 5 mm yielding 29% degree stenosis. The right vertebral artery is diminutive relative to the left. At the origin of the left vertebral artery (axial image 53 of 275) there is moderate to high-grade stenosis at the origin of the left vertebral artery from the left subclavian artery. As the right vertebral artery exhibits the transverse foramen to enter the foramen magnum becomes occluded and remains occluded throughout the remainder of its length. The left vertebral artery provides the sole in-line flow to the basilar artery. CTA of the brain: The internal carotid, anterior and right middle cerebral arteries appear are patent without high grade stenosis or occlusion. At the distal portion of the left M1 segment (axial image 195 of 275) there is abrupt occlusion. Distally this the inferior and superior segments of the middle cerebral artery are diminutive relative to the right. Overall there is relative diminutive arterial filling in the left MCA distribution more peripherally compared to the right side. The vertebral, basilar and posterior cerebral arteries appear patent without high grade stenosis or occlusion. The bilateral posterior communicating arteries are either absent or extremely diminutive making the shin[place]cock of [place] incomplete. NON-ARTERIAL FINDINGS: Subcortical and periventricular white matter hypoattenuation is seen similar to the prior noncontrast CT of the brain and corresponding to findings on the recent MRI. At the anterior lateral aspect of the right upper lobe (image 7 of 138) there is an ill-defined 1.7 cm focus of groundglass attenuation. At the right lobe of the thyroid there is a 7 mm hypoattenuating focus that is not characterized further on this CT examination. IMPRESSION: 1. 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 2. 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 The basilar artery receives in-line flow from the left vertebral artery only. 3. At least moderate appearing stenosis at the origin of the left vertebral artery. 4. Mixed attenuation atherosclerosis at the carotid bulbs causes approximately 33% degree stenosis on the right and 29% degree stenosis in the left. 5. THERE IS A 1.7 CM TRIANGULAR-SHAPED GROUNDGLASS DENSITY IN THE ANTEROLATERAL ASPECT OF THE RIGHT UPPER LOBE OF INDETERMINATE CLINICAL SIGNIFICANCE. A POTENTIAL NEOPLASTIC PROCESS IS NOT COMPLETELY EXCLUDED PARTICULARLY IF THE PATIENT HAS RISK FACTORS FOR LUNG CANCER (I.E. SMOKING). 6. There is a 7 MM HYPODENSITY IN THE RIGHT LOBE OF THE THYROID THAT IS OF DOUBTFUL CLINICAL SIGNIFICANCE. FURTHER CHARACTERIZATION CAN BE MADE WITH THYROID ULTRASOUND ON A NONEMERGENT BASIS.
[2017-02-27] MEDS: KCL 20 MEQ/100 ML IVPREMIX* 20 MEQ/100 ML BAG IV SCH (00:50)
--- NOTE | 2017-02-27 04:09 | PN ---
PROGRESS NOTE: DATE OF SERVICE: 02/26/17 LOCATION: Current location is room 447, bed 2. SUBJECTIVE: Overnight, the patient has had no new problems. He did initially pass a swallowing evaluation, but this morning, when the nurse was with him while he was eating, he was choking some, so he subsequently had been made n.p.o. Reading his notes from yesterday, he appears to be slightly more awake and alert this morning, although he remains confused. To the nurse, he was not oriented to year, but he was oriented to month. I did review his admission H and P as well as consultation. Apparently, he had a stroke approximately 6 weeks ago with right-sided weakness and difficulty with language. He went to his PCP, but he denies going to the hospital at that time. When I asked him if he had any workup, he states he may have had an MRI, but he is not sure. He denies having had a carotid ultrasound or echocardiogram. When his son found him, he was covered in feces, he was dirty, he had fallen and had a bruise over his right eye. I asked him why he stopped taking his medications several days prior and he said that "what's the point." Overnight, he continues to have a prolonged QT interval, remained somewhat confused, although appears slightly better today. He was confused overnight, but he appears to be slightly better this morning. He was started on aspirin yesterday. OBJECTIVE: Vital Signs: He had a low grade fever last night of 100.8. Since that time, he has been afebrile. Current temperature 98.1. Pulse rate is 58, respiratory rate is 16, O2 sat of 100%, blood pressures have been on the lower end in the 110s to 120s/60s to 70s. In general, he is a well-developed, although poorly-nourished gentleman, sitting in his hospital bed. He is disheveled. He has dirt under his fingernails. He has bruise over his right eyebrow. His OP is clear and moist. Neck is supple. Chest is clear to auscultation bilaterally. Cardiovascular: Bradycardic. No arrhythmia. Abdomen is soft, nontender. Extremities: There is no clubbing, cyanosis, or edema. Neuro Exam: His pupils are equal, round, and reactive to light. Extraocular muscles are full with some 2 to 3 beats of nystagmus in his lateral gaze. His face has a right lower facial droop noted. Sensation is intact. Palate and tongue are normal. He has some mild dysarthria. Motor Exam: He is spontaneously moving his extremities bilaterally, symmetrically and has a very subtle right pronator drift. Some significant weakness in the right hip flexor , 4+/5, otherwise 5/5. Rapid alternating movements are slow, but intact, more difficult on the right. Sensory Exam: Intact to light touch and pinprick. Reflexes are 2+ in the upper extremities, 2+ at the left patella, 3+ at the right patella, equivocal Babinski's. DIAGNOSTIC STUDIES: Lab work this morning includes sodium of 130, up from 125; chloride of 92; BUN of 26; glucose of 65, down from 192; calcium of 8.3. His troponins have been negative. His white count is 15.8, down from 28.1; hemoglobin of 13.7; hematocrit of 40. His LDL is 104, HDL of 35.8. TSH of 2.27 , free T4 of 1.64, triglycerides of 151. C-reactive protein of 132.6. Total bili of 1.80. He tested positive for cannabinoids. Serum alcohol is less than 10. MRI of the brain reviewed. It shows multiple areas of restricted diffusion in the left frontal and parietal periventricular white matter consistent with subacute nonhemorrhagic infarct with extensive white matter changes in the periventricular and subcortical white matter bilaterally. [place] level on admission noted to be 0.16. ASSESSMENT AND PLAN: Mr. Padilla is a 71-year-old gentleman who has a history of multiple medical problems including bipolar, hyperlipidemia, prostate cancer, depression, anxiety, stroke, gastroesophageal reflux disease, hypertension, pyloric stenosis, who was on multiple medications at home including aspirin, lithium, insulin, blood pressure medications who stopped taking his medications 3 to 4 days ago. He apparently presented to his PCP about 6 weeks ago with signs and symptoms of his stroke, but no apparent workup was done at that time. His family found him confused and disheveled yesterday after he did not answer the phone for 3 days and he was brought to the ER where he was found to be confused. He had some right- sided weakness, some slurred speech. 1. MRI consistent with subacute strokes, nothing acute. He was given aspirin in the ER and it has been continued. He does not appear to have any evidence of bleeding. I am going to continue his workup, including a CT angiogram of his head and neck, as well as an echocardiogram. There is no reported history of atrial fibrillation, but this looks to be thromboembolic in nature. We need to continue his statin and I would increase the dose as tolerated for a goal LDL less than 70. As far as his prolonged QTC, he is on telemetry. His psychiatric medications are being held and medicine is following this. Echo pending. 2. Hypertension. At this point, since he is now several weeks out from his stroke. I would continue his blood pressure medications as tolerated for his bradycardia. 3. Diabetes. He needs to have a strict diet control. Troponins are being followed, appeared to be negative at this point. 4. Hyponatremia. He is improving with hydration. Likely dehydration is the cause. He is currently n.p.o. Speech therapy will be ordered. The nurses will continue to monitor this at the bedside. 5. He does have a history of alcohol use and drug use. He is on thiamine and I would watch for any evidence of withdrawal, treating appropriately with benzodiazepines. I will continue to follow him closely and make further recommendations as necessary. 6. Dysphagic: mechanical soft, speech eval. Thank you for the opportunity to participate in his care. [id number]/[facility] #: [id number] MADELEINE
[2017-02-27] MEDS: Insulin LISPRO* 1 UNITS UNIT SUBCUT SCH ×4 (07:55→20:54)
[2017-02-27] MEDS: Omeprazole CAP* 20 MG PO SCH (09:15)
[2017-02-27] MEDS: Atorvastatin* 20 MG TAB PO SCH (09:15)
[2017-02-27] MEDS: amLODIPine TAB* 5 MG PO SCH (09:15)
[2017-02-27] MEDS: Aspirin Low Dose CHEW TAB* 81 MG PO SCH (09:16)
[2017-02-27] MEDS: Metoprolol Tartrate TAB* 25 MG PO SCH ×2 (09:16→20:54)
[2017-02-27 09:59] LABS: Hematocrit 34 % (42-52); Mean Corpuscular HGB Conc 35 g/dl (31-36); Mean Corpuscular Hemoglobin 27 pg (27-31); Mean Corpuscular Volume 77 fL (80-94); Mean Platelet Volume 8 um3 (7.4-10.4); Red Blood Count 4.41 10^6/ul (4.0-5.4); Red Cell Distribution Width 15 % (10.5-15); White Blood Count 10.9 10^3/ul (3.5-10.8)
[2017-02-27 10:10] LABS: Calcium 8.3 mg/dL (8.6-10.3); EGFR African American 146.2 (>60); EGFR Non-African American 113.7 (>60); Potassium 3.1 mmol/L (3.5-5.0)
[2017-02-27] MEDS: Clopidogrel TAB* 75 MG PO SCH (11:59)
[2017-02-27] MEDS: Potassium Chlor TAB* 20 MEQ TAB.ER PO SCH ×2 (11:59→15:17)
--- NOTE | 2017-02-27 14:15 | PN ---
Subjective Date of Service: 02/27/17 Interval History: CTA with right vertebral artery occlusion and left MCA distal M1 abrupt occlusion. moderate stenosis of origin of left vertebral artery Tmax 99.4 midnight Leukocytosis resolved. Starting plavix ECHO pending. cultures negative Pt w/o complaint but poor historian. Attests to marijuana use last week. No recent EtOH Objective Active Medications: Acetaminophen (Tylenol Tab*) 650 mg PO Q4H PRN PRN Reason: FEVER/PAIN Amlodipine Besylate (Norvasc Tab*) 10 mg PO DAILY [facility] Last Admin: 02/27/17 09:15 Dose: 10 mg Aspirin (Aspirin Low Dose Tab*) 81 mg PO DAILY [facility] Last Admin: 02/27/17 09:16 Dose: 81 mg Atorvastatin Calcium (Lipitor*) 20 mg PO DAILY [facility] Last Admin: 02/27/17 09:15 Dose: 20 mg Clopidogrel Bisulfate (Plavix Tab*) 75 mg PO DAILY [facility] Last Admin: 02/27/17 11:59 Dose: 75 mg Dextrose (D50w Syringe 50 Ml*) 12.5 gm IV PUSH .FOR FS < 60 - SS PRN PRN Reason: FS < 60 Sodium Chloride (Ns 0.9% 1000 Ml*) 1,000 mls @ 125 mls/hr IV PER RATE [facility] Last Admin: 02/26/17 13:15 Dose: 125 mls/hr Ceftriaxone Sodium 1,000 mg/ (Sodium Chloride) 50 mls @ 200 mls/hr IVPB 1600 [facility] Last Admin: 02/26/17 16:42 Dose: 200 mls/hr Insulin Human Lispro (Humalog*) 0 units SUBCUT AC [facility] PRN Reason: Protocol Last Admin: 02/27/17 13:48 Dose: Not Given Metoprolol Tartrate (Lopressor Tab*) 25 mg PO BID [facility] Last Admin: 02/27/17 09:16 Dose: 25 mg Prochlorperazine Edisylate (Compazine Inj*) 5 mg IV Q6H PRN PRN Reason: NAUSEA/VOMITING Last Admin: 02/25/17 14:36 Dose: 5 mg Vital Signs 02/26/17 02/26/17 02/26/17 15:43 19:41 20:00 Temperature 97.8 F 99.0 F Pulse Rate 65 71 Respiratory 20 16 17 Rate Blood Pressure 124/63 138/62 (mmHg) O2 Sat by Pulse 96 95 Oximetry 02/26/17 02/27/17 02/27/17 23:39 03:24 07:47 Temperature 99.4 F 98.7 F 98.6 F Pulse Rate 62 59 63 Respiratory 16 16 16 Rate Blood Pressure 139/79 152/67 135/58 (mmHg) O2 Sat by Pulse 98 97 97 Oximetry 02/27/17 02/27/17 08:00 11:47 Temperature 98.6 F Pulse Rate 56 Respiratory 16 20 Rate Blood Pressure 137/63 (mmHg) O2 Sat by Pulse 97 Oximetry Oxygen Devices in Use Now: None Appearance: NAD. Ears/Nose/Mouth/Throat: NL Teeth, Lips, Gums, Mucous Membranes Moist Neck: NL Appearance and Movements; NL JVP, Trachea Midline Respiratory: Symmetrical Chest Expansion and Respiratory Effort, Clear to Auscultation Cardiovascular: NL Sounds; No Murmurs; No JVD, RRR Abdominal: NL Sounds; No Tenderness; No Distention, No Hepatosplenomegaly Extremities: No Edema, No Clubbing, Cyanosis Skin: - - mild petechial rash lower back (slightly improved) Neurological: NL Sensation, - - oriented to name, hospital, president and [place] but not city. Expressive aphasia persists. No pronater drift. CUMMINS Result Diagrams: 02/27/17 09:31 02/27/17 09:31 Additional Lab and Data: Laboratory Results - last 24 hr 02/25/17 02/26/17 02/27/17 16:37 17:01 07:11 WBC RBC Hgb Hct MCV MCH MCHC RDW Plt Count MPV Neut % (Auto) Lymph % (Auto) [place] % (Auto) Eos % (Auto) Baso % (Auto) Absolute Neuts (auto) Absolute Lymphs (auto) Absolute Monos (auto) Absolute Eos (auto) Absolute Basos (auto) Absolute Nucleated RBC Nucleated RBC % Sodium Potassium Chloride Carbon Dioxide Anion Gap BUN Creatinine Est GFR ( Amer) Est GFR (Non-Af Amer) BUN/Creatinine Ratio Glucose POC Glucose (mg/dL) 108 H 67 L Calcium HIV 1&2 Antibody Nonreactive 02/27/17 02/27/17 02/27/17 09:31 09:31 11:45 WBC 10.9 H RBC 4.41 Hgb 12.0 L Hct 34 L MCV 77 L MCH 27 MCHC 35 RDW 15 Plt Count 255 MPV 8 Neut % (Auto) 70.8 Lymph % (Auto) 17.4 L [place] % (Auto) 10.0 H Eos % (Auto) 1.3 Baso % (Auto) 0.5 Absolute Neuts (auto) 7.7 Absolute Lymphs (auto) 1.9 Absolute Monos (auto) 1.1 H Absolute Eos (auto) 0.1 Absolute Basos (auto) 0.1 Absolute Nucleated RBC 0 Nucleated RBC % 0 Sodium 131 L Potassium 3.1 L Chloride 97 L Carbon Dioxide 25 Anion Gap 9 BUN 9 Creatinine 0.69 Est GFR ( Amer) 146.2 Est GFR (Non-Af Amer) 113.7 BUN/Creatinine Ratio 13.0 Glucose 113 H POC Glucose (mg/dL) 121 H Calcium 8.3 L HIV 1&2 Antibody Microbiology and Other Data: Microbiology 02/25/17 19:37 Blood Venous Aerobic Blood Culture - Preliminary No Growth Day 1 02/25/17 19:37 Blood Venous Anaerobic Blood Culture - Preliminary No Growth Day 1 02/25/17 16:37 Blood Venous Aerobic Blood Culture - Preliminary No Growth Day 1 02/25/17 16:37 Blood Venous Anaerobic Blood Culture - Preliminary No Growth Day 1 02/25/17 14:35 Nasal Influenza Types A,B Antigen (CHARMAINE) - Final Specimen received for Influenza A/B Molecular testing Assess/Plan/Problems-Billing Assessment: 71 yo male PMH recent (6wk prior) CVA, HTN, IDDM, prostate cancer, bipolar, depression, pyloric stenosis, GERD p/w with AMS, fall, neglect of self care and reported no po intake for 1 week. fever, petechial rash. On ceftriaxone. Improved mental status. Right vertebral artery occlusion, left M1 MCA occlusion , starting plavix. - Patient Problems (1) CVA (cerebral vascular accident) Current Visit: Yes Status: Acute Code(s): I63.9 - CEREBRAL INFARCTION, UNSPECIFIED SNOMED Code(s): 596254338 Comment: Appreciate Neuro recs MRI with subacute infarct left frontal parietal. CVA ~6 weeks ago, late presentation w/ unclear outpatient w/u CTA head/neck with right vertebral and left MCA proximal M1 occlusions. Plavix started. 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 holding now, have held given hypoglycemia to 60s prior and poor po intake. SSI, POCT qac qhs (3) Altered mental status Current Visit: Yes Status: Acute Code(s): R41.82 - ALTERED MENTAL STATUS, UNSPECIFIED SNOMED Code(s): 010648738 Comment: likely toxic metabolic in setting of subacute CVA. Improved on CFTX , IVF, nutrition. still with expressive aphasia (4) Fever Current Visit: Yes Status: Acute Code(s): R50.9 - FEVER, UNSPECIFIED SNOMED Code(s): 629403407 Comment: Blood Culture NGTDx1. UA not concerning for infection. CXR clear. Continue empiric Ceftriaxone f/u ANCA. was concern for vasculitis given petechial rash. Was reportedly naked , covered in feces, could be component of dermatitis from that given mostly lower back/sacrum. (5) HTN (hypertension) Current Visit: Yes Status: Acute Code(s): I10 - ESSENTIAL (PRIMARY) HYPERTENSION SNOMED Code(s): 65577445 Comment: continue home amlodipine 10 daily and metoprolol 25mg BID (6) GERD (gastroesophageal reflux disease) Current Visit: Yes Status: Acute Code(s): K21.9 - GASTRO-ESOPHAGEAL REFLUX DISEASE WITHOUT ESOPHAGITIS SNOMED Code(s): 232659219 Comment: prilosec 20mg po bid (7) Living alone Current Visit: Yes Status: Acute Code(s): Z60.2 - PROBLEMS RELATED TO LIVING ALONE SNOMED Code(s): 113430602 Comment: Patient will likely need rehab but don't think current situation living alone will be a safe one going forward. (8) SIRS (systemic inflammatory response syndrome) Current Visit: Yes Status: Acute Code(s): R65.10 - SIRS OF NON-INFECTIOUS ORIGIN W/O ACUTE ORGAN DYSFUNCTION SNOMED Code(s): 860472503 Comment: resolved. fever, leukocytosis, HR>90. Briefly tachypneic, on room air. Unclear source. Status and Disposition: medicine inpatient. Likely to SNF but awaiting PT/OT assessment Attending: Lj Paul
[2017-02-27] MEDS ORDERED: Dextrose 50% Syringe 50 ML* 25 GM/50 ML SYRINGE IV PUSH PRN (14:22)
[2017-02-27] MEDS: cefTRIAXone VIAL(*) 1,000 MG in NS 0.9% 50 ML* 50 ML IVPB SCH (15:18)
--- NOTE | 2017-02-27 23:40 | PN ---
PROGRESS NOTE: DATE OF PROGRESS NOTE: 02/27/17 LOCATION: He is currently in room 447, bed 2. SUBJECTIVE: Overnight, there have been no new issues. I spoke with his nurse, who states that he has been waxing and waning with his mental status, but has been stable. No new reported numbness, tingling, or weakness. He continues to have some dysarthria and dysphagia. Currently, on thickened liquids and mechanical soft and seems to be tolerating that without choking. He denies any pain. States that he feels about the same. This morning, he remains confused. STUDIES: 1. He had a head CTA reviewed with multiple findings including occluded distal M1 on the left with diminutive arterial filling distally compared to the contralateral right hemisphere. He had occlusion of the right vertebral artery from the third segment just before entering the foramen magnum. Basilar artery receives inline flow from the vertebral artery. Moderate-appearing stenosis of the left vertebral artery. He had atherosclerotic disease of the carotid bulbs causing 33% stenosis on the right and 29% stenosis on the left noted with a 1.7- cm triangular-shaped ground glass density in the anterior lateral aspect of the right upper lobe with indeterminate clinical significance. Also noted was a 7- mm hypodensity in the right lobe of the thyroid, doubtful clinical significance. 2. Echocardiogram pending. OBJECTIVE: Overnight vital signs, he was afebrile, overnight last reported temperature was 99.0 at 7:41 yesterday, this morning 98.6; pulse of 63; respiratory rate of 16; pulse ox of 97%, blood pressures have ranged in the 130s to 152/50s to 70s. In general, he is a well-developed gentleman, somewhat disheveled, lying in his hospital bed, sleeping, he awakens easily. He is pleasant, although confused. HEENT: He is normocephalic, atraumatic. His sclerae are anicteric. Mucous membranes are moist. Poor dentition. Neck is supple. No carotid bruits. Chest: Clear to auscultation bilaterally. Cardiovascular: Regular rate and rhythm without murmurs. Abdomen is nontender. Extremities: No significant edema present. Skin is warm and dry. He does have an abrasion over the right eyebrow that is well healing. On neurologic exam, he is awake, he is alert, he is oriented to person only. His speech is fluent, although somewhat dysarthric. Cranial Nerves: Pupils are equal, round, and reactive to light. Extraocular muscles are intact. Visual mi are full. No diplopia was noted. His face, he has a right lower facial droop. He also has some ptosis of the right eye. Sensation is intact to light touch on the face. Hearing is grossly intact bilaterally, although diminished. His palate raises symmetrically. His tongue is midline. Motor Exam: He is moving all extremities antigravity with good effort and good resistance, 5/5 on the left side, 4+/5 proximally on the right upper and lower extremities, 5/5 distally. He has mild drift in the right upper extremity. Tone and bulk are both normal. Sensation is grossly intact to light touch and pinprick in the upper and lower extremities. [id number] and rapid alternating movements are slow on the right. No past-pointing. DTRs were 1+ and symmetric in the upper extremities, 2+ at the right patella, 1+ at the left patella, equivocal Babinski's. Gait was not tested at this time. LABORATORY DATA: Lab work includes white count of 10.9 down from 15.8, hemoglobin of 12.0 down from 13.7, hematocrit of 34 down from 40, platelet count is normal. Chemistry: Sodium of 131 stable from yesterday, potassium of 3.1, chloride of 97, glucose of 113, calcium of 8.3. His lab workup shows no aerobic or anaerobic growth for 1 day. ASSESSMENT AND PLAN: Mr. Padilla is a 71-year-old gentleman with history of bipolar, prostate cancer, depression, hyperlipidemia, stroke, gastroesophageal reflux, hypertension, pyloric stenosis, who had been on medications including aspirin and lithium, blood pressure medicine, diabetes medicine at home, but stopped it 3 to 4 days ago, presented to his primary care provider about 6 weeks ago with some signs and symptoms of stroke including dysarthria, but did not have a workup done at that time, was found on day of admission confused, disheveled with worsening speech was brought into the hospital and MRI of the brain showed subacute areas in the left frontal and parietal periventricular white matter consistent with subacute nonhemorrhagic infarct. 1. Stoke: He was restarted on aspirin, had a CTA yesterday. At this point, given his significant vertebral stenosis as well as thrombosed right vertebral, I do think do antiplatelet therapy is necessary. I spoke with his primary care provider, who will add Plavix to his aspirin regimen. Echocardiogram is pending , although my suspicion for a cardioembolic stroke is low, likely thromboembolic. Continue secondary stroke risk reduction including tight blood pressure and blood glucose control. Continue statin. I am going to increase the dose. His goal LDL should be less than 70. 2. He does smoke marijuana regularly. Also reported heavy drinking habit. He is being watched closely for any evidence of withdrawal. He denies any recent drinking. 3. I defer management of his other medical issues including hyponatremia, hypokalemia, hypertension, diabetes to his primary provider. 4. He also has had recent prolonged QTc and is on telemetry. His psychiatric medications including lithium currently being held. 5. He is on antibiotics for evidence of urinary tract infection. 6. His diet is currently soft mechanical with thickened liquids. Speech Therapy is to see him tomorrow and advance his diet as tolerated. Physical therapy and occupational therapy have been ordered as well. I will continue to follow him and make further recommendations as necessary. [id number]/[facility] #: [id number] MTDD
--- NOTE | 2017-02-28 09:08 | PN ---
PROGRESS NOTE: DATE OF PROGRESS NOTE: 02/28/17 LOCATION: Currently in room 447, bed 2. SUBJECTIVE: Overnight no new issues. He continues to tolerate the mechanical soft with thickened li quid diet. There have been no reported issues with choking. The patient states he continues to have some trouble. He is aware of some continued confusion. No significant changes. No telemetry event s reported. He is awaiting his echocardiogram. OBJECTIVE: Vital signs: Temperature of 99.0 this morning, respiratory rate of 16, pulse ox of 98%, b lood pressure 156/75. His temperatures have generally been afebrile, although he did have a very low -grade fever on 02/26/17. Blood pressures have been in the 130s to 150s/60s to 80s, with mean blood pressures in the 70s to 90s. In general, he is a well developed, although disheveled gentleman, farshad coello in his hospital bed. He remains somewhat disheveled. His head is normocephalic. He has a well he aling abrasion over the right eyebrow. Sclera are anicteric. Mucous membranes are moist. Oropharyn x is clear. Neck is supple. Chest is clear to auscultation bilaterally. Cardiovascular: Regular r ate and rhythm. Abdomen: Nontender. Extremities: No cyanosis or edema is present. Skin is warm an d dry. On neurological exam, he is awake, alert, and oriented to person only. He is able to get some answers with cueing. His speech is fluent. There is no significant dysarthria today. Recall is shay ewhat impaired. Cranial Nerves: Pupils are equal, round, and reactive to light. Extraocular muscle s are intact. Visual mi are full. Face is asymmetric with a droop in the right lower face as we ll as some ptosis in the right. Sensation is grossly intact to light touch in the face. Tongue is mi dline. Palate rises symmetrically. Hearing is diminished, but intact bilaterally. He spontaneously moves all extremities antigravity. He has good resistance, 5/5, throughout. No apparent weakness, but he does have drift in the right upper extremity. Tone is normal. Bulk is slightly decreased thro ughout. DTRs are 1+ on the left upper and lower extremities; 2+ at the right upper and lower extremit ies. He withdraws bilaterally to Babinski. [id number] and rapid alternating movements are slow on the right, with some difficulty. Left is normal. Sensation is intact to light touch and pinprick throughout. Gait was not tested this morning. LABORATORY DATA: New results include aerobic and anaerobic blood cultures that are negative x2 days. Blood glucose has ranged from 121 to 123 to 185. HIV serology was nonreactive. He is awaiting his echocardiogram. ASSESSMENT AND PLAN: Mr. Padilla is a 71-year-old gentleman with multiple medical problems, [facility] several weeks ago, had stopped his medications 3 to 4 days prior to admission, was found disheveled, with worsening speech, and was brought to the hospital. MRI showed subacute areas in the left frontal and parietal periventricular white matter consistent with subacut e non-hemorrhagic infarct. Restarted on aspirin 2 days ago, had a CT angiogram which showed signific ant vertebral stenosis, thrombosis of the right vertebral, and some carotid stenosis as well, not cri tical. Yesterday, based on his vertebral artery disease, started him on dual antiplatelet. So, he i s now on Plavix and aspirin. Continue secondary stroke risk factor reduction including blood pressure control, blood glucose control, lipid control with a goal LDL less than 70. Smoking cessation, clinton romero cessation. He does have a history of alcohol use. No evidence of withdrawal in the hospital. He has a history of bipolar, came in with some QT prolongation, and his lithium and psych medications were held. He seems to be stable during this hospitalization. He is being followed closely for hyp onatremia and hypokalemia, as well as hypertension and diabetes, remains on telemetry. He is getting physical and occupational therapy. This morning Speech Therapy will evaluate him as well. We will continue his mechanical soft with thickened liquid diet. We will continue to follow him. [id number]/[facility] #: [id number]
[2017-02-28] MEDS: Insulin LISPRO* 1 UNITS UNIT SUBCUT SCH ×4 (09:33→21:36)
[2017-02-28 10:12] LABS: Hematocrit 35 % (42-52); Hemoglobin 12.3 g/dl (14.0-18.0); Mean Corpuscular HGB Conc 36 g/dl (31-36); Mean Corpuscular Hemoglobin 27 pg (27-31); Mean Corpuscular Volume 76 fL (80-94); Mean Platelet Volume 8 um3 (7.4-10.4); Red Blood Count 4.51 10^6/ul (4.0-5.4); Red Cell Distribution Width 15 % (10.5-15); White Blood Count 9.1 10^3/ul (3.5-10.8)
[2017-02-28 10:16] LABS: BUN/Creatinine Ratio 10.1 (8-20); EGFR African American 146.2 (>60); EGFR Non-African American 113.7 (>60)
[2017-02-28] MEDS: Clopidogrel TAB* 75 MG PO SCH (10:51)
[2017-02-28] MEDS: amLODIPine TAB* 5 MG PO SCH (10:51)
[2017-02-28] MEDS: Metoprolol Tartrate TAB* 25 MG PO SCH ×2 (10:52→21:29)
[2017-02-28] MEDS: Aspirin Low Dose CHEW TAB* 81 MG PO SCH (10:52)
--- NOTE | 2017-02-28 12:46 | ECHO ---
Patient: BUD VERMA Rec#: [id number] : 1945 Date: 02/28/2017 Age: 71y Height: 172.7 cm / 68.0 in Weight: 70.3 kg / 154.9 lbs Sex: M BSA: 1.8 Room#: [facility] Admit Date#: 02/25/2017 Referring: Daniel Sprague Reading: Bubba Morocho MD Rn Recovery: Joanna Valverde RN RDCS CC: Tennille Vega MD Transthoracic Echocardiogram Indication: CVA BP: 156/75 HR: 64 Rhythm: NSR with PACs Findings History: HTN, DM, HLD, CVA, GERD, prostate cancer, pyloric stenosis, bipolar disorder, marijuana use. Technical Comments: The study quality is fair. Completed at 0910. Left Ventricle: The left ventricular chamber size is normal. Global left ventricular wall motion and contractility are within normal limits. There is normal left ventricular systolic function. The estimated ejection fraction is 60-65%. There is an E to A reversal in the mitral valve flow pattern suggestive of diastolic dysfunction. Left Atrium: The left atrial chamber size is normal. Right Ventricle: The right ventricular chamber size and systolic function are within normal limits. Right Atrium: The right atrial cavity size is normal. A patent foramen ovale is demonstrated by agitated contrast. Aortic Valve: The aortic valve is trileaflet. The aortic valve leaflets are mildly thickened. There is mild aortic regurgitation. There is no evidence of aortic stenosis. The measured aortic regurgitation pressure half-time is 519 msec. Mitral Valve: The mitral valve leaflets are mildly thickened. There is mild mitral regurgitation. There is no evidence of mitral stenosis. Tricuspid Valve: The tricuspid valve leaflets are normal. There is trace tricuspid regurgitation. Unable to estimate the right ventricular systolic pressure. There is no tricuspid stenosis. Pulmonic Valve: The pulmonic valve structure is not well visualized. There is trace to mild pulmonic regurgitation. There is no pulmonic stenosis. Pericardium: There is no significant pericardial effusion. Aorta: There is no dilatation of the ascending aorta. There is no dilatation of the aortic arch. There is mild dilatation of the aortic root. Pulmonary Artery: The main pulmonary artery is not well visualized. Venous: The venous system is not well visualized. The inferior vena cava is not visualized. Contrast: Normal saline was used as contrast for the bubble study. Images 103 and 104. Conclusions Global left ventricular wall motion and contractility are within normal limits. There is normal left ventricular systolic function. The estimated ejection fraction is 60-65%. There is an E to A reversal in the mitral valve flow pattern suggestive of diastolic dysfunction. A likely small patent foramen ovale is demonstrated by agitated contrast. There is mild aortic regurgitation. There is mild mitral regurgitation. There is trace tricuspid regurgitation. Unable to estimate the right ventricular systolic pressure. There is no significant pericardial effusion. Measurements Name Value Normal Range RVIDd (AP) 2D 2.5 cm (0.9 - 2.6) RVDdMajor (2D) 2.7 cm (2.2 - 4.4) RAd ISD 4CH 4.3 cm (3.4 - 4.9) RA (A4C)W 3.9 cm (2.9 - 4.6) IVSd (2D) 0.8 cm (0.6 - 1) LVPWd (2D) 1 cm (0.6 - 1) LVIDd (2D) 4 cm (3.6 - 5.4) LVIDs (2D) 2.7 cm - LV FS (2D) 33 % (25 - 45) Aortic Annulus 2.1 cm (1.4 - 2.6) Ao root diameter (2D) 3.6 cm (2.1 - 3.5) Ascending Ao 3.3 cm (2.1 - 3.4) Aortic arch 3 cm (1.8 - 3.4) LA dimension (AP) 2D 3.3 cm (2.3 - 3.8) LAd ISD 4CH 4.5 cm (2.9 - 5.3) LA ISD 4CH W 4.2 cm (2.5 - 4.5) Name Value Normal Range LA ESV SP 4CH (A/L) 50 ml - LA ESV SP 2CH (A/L) 32 ml - LA ESV BP (A/L) 41 ml - LA ESV BP (A/L) index 22.5 ml/m2 - LA ESV SP 4CH (MOD) 43 ml - LA ESV SP 2CH (MOD) 32 ml - Name Value Normal Range MV E-wave Vmax 0.71 m/sec - MV deceleration time 223 msec - MV A-wave Vmax 0.96 m/sec - MV E:A ratio 0.73 ratio - LV septal e' Vmax 0.07 m/sec - LV lateral e' Vmax 0.07 m/sec - LV E:e' septal ratio 10.1 ratio - LV E:e' lateral ratio 10.1 ratio - Name Value Normal Range AV Vmax 1.6 m/sec - AV VTI 30.5 cm - AV peak gradient 9.9 mmHg - AV mean gradient 5.8 mmHg - LVOT Vmax 1.2 m/sec - LVOT VTI 24.4 cm - LVOT peak gradient 5.5 mmHg - LVOT mean gradient 2.8 mmHg - AR PHT 519 msec - Name Value Normal Range PV Vmax 1.3 m/sec -
[2017-02-28] MEDS: cefTRIAXone VIAL(*) 1,000 MG in NS 0.9% 50 ML* 50 ML IVPB SCH (15:51)
--- NOTE | 2017-02-28 16:40 | PN ---
Subjective Date of Service: 02/28/17 Interval History: ECHO with possible small pFO. referrals pending for discharge. Objective Active Medications: Acetaminophen (Tylenol Tab*) 650 mg PO Q4H PRN PRN Reason: FEVER/PAIN Amlodipine Besylate (Norvasc Tab*) 10 mg PO DAILY [facility] Last Admin: 02/28/17 10:51 Dose: 10 mg Aspirin (Aspirin Low Dose Tab*) 81 mg PO DAILY [facility] Last Admin: 02/28/17 10:52 Dose: 81 mg Atorvastatin Calcium (Lipitor*) 40 mg PO BEDTIME [facility] Clopidogrel Bisulfate (Plavix Tab*) 75 mg PO DAILY [facility] Last Admin: 02/28/17 10:51 Dose: 75 mg Dextrose (D50w Syringe 50 Ml*) 12.5 gm IV PUSH .FOR FS < 60 - SS PRN PRN Reason: FS < 60 Dextrose (D50w Syringe 50 Ml*) 12.5 gm IV PUSH .FOR FS < 60 - SS PRN PRN Reason: FS < 60 Ceftriaxone Sodium 1,000 mg/ (Sodium Chloride) 50 mls @ 200 mls/hr IVPB 1600 [facility] Last Admin: 02/28/17 15:51 Dose: 200 mls/hr Insulin Human Lispro (Humalog*) 0 units SUBCUT ACHS [facility] PRN Reason: Protocol Last Admin: 02/28/17 12:47 Dose: 2 units Metoprolol Tartrate (Lopressor Tab*) 25 mg PO BID [facility] Last Admin: 02/28/17 10:52 Dose: 25 mg Prochlorperazine Edisylate (Compazine Inj*) 5 mg IV Q6H PRN PRN Reason: NAUSEA/VOMITING Last Admin: 02/25/17 14:36 Dose: 5 mg Vital Signs 02/27/17 02/27/17 02/27/17 19:20 19:37 20:00 Temperature 97.8 F Pulse Rate 69 Respiratory 20 20 Rate Blood Pressure 141/69 (mmHg) O2 Sat by Pulse 99 99 Oximetry 02/27/17 02/28/17 02/28/17 23:40 03:50 07:16 Temperature 99.3 F 99.0 F 98.8 F Pulse Rate 61 62 64 Respiratory 16 16 20 Rate Blood Pressure 154/81 156/75 132/71 (mmHg) O2 Sat by Pulse 98 98 97 Oximetry 02/28/17 02/28/17 08:00 16:05 Temperature Pulse Rate Respiratory 18 Rate Blood Pressure (mmHg) O2 Sat by Pulse 97 96 Oximetry Oxygen Devices in Use Now: None Appearance: NAD, Eyes: No Scleral Icterus, PERRLA Ears/Nose/Mouth/Throat: NL Teeth, Lips, Gums, Mucous Membranes Moist Neck: NL Appearance and Movements; NL JVP Respiratory: Symmetrical Chest Expansion and Respiratory Effort, Clear to Auscultation Cardiovascular: NL Sounds; No Murmurs; No JVD, RRR Abdominal: NL Sounds; No Tenderness; No Distention, No Hepatosplenomegaly Extremities: No Edema, No Clubbing, Cyanosis Skin: - - improving rash on lower back. Neurological: NL Sensation, NL Muscle Strength and Tone, - - oriented to name. expressive aphasia, following commands. Result Diagrams: 02/28/17 09:44 02/28/17 09:44 Additional Lab and Data: Laboratory Results - last 24 hr 02/25/17 02/27/17 02/28/17 16:37 20:47 08:35 WBC RBC Hgb Hct MCV MCH MCHC RDW Plt Count MPV Neut % (Auto) Lymph % (Auto) [place] % (Auto) Eos % (Auto) Baso % (Auto) Absolute Neuts (auto) Absolute Lymphs (auto) Absolute Monos (auto) Absolute Eos (auto) Absolute Basos (auto) Absolute Nucleated RBC Nucleated RBC % Sodium Potassium Chloride Carbon Dioxide Anion Gap BUN Creatinine Est GFR ( Amer) Est GFR (Non-Af Amer) BUN/Creatinine Ratio Glucose POC Glucose (mg/dL) 185 H 105 H Calcium Proteinase 3 (PR3) < 0.2 Myeloperoxidase Ab < 0.2 02/28/17 02/28/17 02/28/17 09:44 09:44 12:12 WBC 9.1 RBC 4.51 Hgb 12.3 L Hct 35 L MCV 76 L MCH 27 MCHC 36 RDW 15 Plt Count 300 MPV 8 Neut % (Auto) 66.0 Lymph % (Auto) 19.6 L [place] % (Auto) 11.3 H Eos % (Auto) 2.0 Baso % (Auto) 1.1 Absolute Neuts (auto) 6.0 Absolute Lymphs (auto) 1.8 Absolute Monos (auto) 1.0 H Absolute Eos (auto) 0.2 Absolute Basos (auto) 0.1 Absolute Nucleated RBC 0 Nucleated RBC % 0 Sodium 127 L Potassium 4.0 Chloride 95 L Carbon Dioxide 24 Anion Gap 8 BUN 7 Creatinine 0.69 Est GFR ( Amer) 146.2 Est GFR (Non-Af Amer) 113.7 BUN/Creatinine Ratio 10.1 Glucose 215 H POC Glucose (mg/dL) 172 H Calcium 9.0 Proteinase 3 (PR3) Myeloperoxidase Ab Microbiology and Other Data: Microbiology 02/25/17 19:37 Blood Venous Aerobic Blood Culture - Preliminary No Growth Day 2 02/25/17 19:37 Blood Venous Anaerobic Blood Culture - Preliminary No Growth Day 2 02/25/17 16:37 Blood Venous Aerobic Blood Culture - Preliminary No Growth Day 2 02/25/17 16:37 Blood Venous Anaerobic Blood Culture - Preliminary No Growth Day 2 Assess/Plan/Problems-Billing Assessment: 71 yo male PMH recent (6wk prior) CVA, HTN, IDDM, prostate cancer, bipolar, depression, pyloric stenosis, GERD p/w with AMS, fall, neglect of self care and reported no po intake for 1 week. fever, petechial rash. On ceftriaxone. Improved mental status. Right vertebral artery occlusion, left M1 MCA occlusion , starting plavix. ANCA negative. Awaiting SNF acceptance. - Patient Problems (1) CVA (cerebral vascular accident) Current Visit: Yes Status: Acute Code(s): I63.9 - CEREBRAL INFARCTION, UNSPECIFIED SNOMED Code(s): 227080932 Comment: Appreciate Neuro recs MRI with subacute infarct left frontal parietal. CVA ~6 weeks ago, late presentation w/ unclear outpatient w/u CTA head/neck with right vertebral and left MCA proximal M1 occlusions. Plavix started. ECHO with possible small PFO. aspirin 81mg lipitor 20mg daily did well with PT but not mentally safe to take care of himself. OT ordered. Denies Hx of Afib (2) IDDM (insulin dependent diabetes mellitus) Current Visit: Yes Status: Acute Code(s): E11.9 - TYPE 2 DIABETES MELLITUS WITHOUT COMPLICATIONS; Z79.4 - SENIOR LIVING (CURRENT) USE OF INSULIN SNOMED Code( s): 08722986 Comment: at home was on 50U lantus BID. holding now, have held given hypoglycemia to 60s prior and poor (but improving) po intake. SSI, POCT qac qhs. (3) Altered mental status Current Visit: Yes Status: Acute Code(s): R41.82 - ALTERED MENTAL STATUS, UNSPECIFIED SNOMED Code(s): 515902185 Comment: likely toxic metabolic in setting of subacute CVA. Resolved. on CFTX , IVF, nutrition. still with expressive aphasia (4) Fever Current Visit: Yes Status: Acute Code(s): R50.9 - FEVER, UNSPECIFIED SNOMED Code(s): 601851458 Comment: resolved. Blood Culture [id number]. UA not concerning for infection. CXR clear. Continue empiric Ceftriaxone through d/c ANCA negative. there was concern for vasculitis given petechial rash but was reportedly naked, covered in feces, and more likely a dermatitis from that given mostly lower back/sacrum. improving (5) HTN (hypertension) Current Visit: Yes Status: Acute Code(s): I10 - ESSENTIAL (PRIMARY) HYPERTENSION SNOMED Code(s): 36913652 Comment: continue home amlodipine 10 daily and metoprolol 25mg BID controlled. (6) GERD (gastroesophageal reflux disease) Current Visit: Yes Status: Acute Code(s): K21.9 - GASTRO-ESOPHAGEAL REFLUX DISEASE WITHOUT ESOPHAGITIS SNOMED Code(s): 886548046 Comment: prilosec 20mg po bid (7) Living alone Current Visit: Yes Status: Acute Code(s): Z60.2 - PROBLEMS RELATED TO LIVING ALONE SNOMED Code(s): 419147812 Comment: Patient will likely need rehab but don't think current situation living alone will be a safe one going forward. (8) SIRS (systemic inflammatory response syndrome) Current Visit: Yes Status: Acute Code(s): R65.10 - SIRS OF NON-INFECTIOUS ORIGIN W/O ACUTE ORGAN DYSFUNCTION SNOMED Code(s): 913159202 Comment: resolved. fever, leukocytosis, HR>90. Briefly tachypneic, on room air. Unclear source. Status and Disposition: medicine inpatient. Referrals out to mutliple SNFs this AM, still awaiting acceptance. Attending: Lj Paul
--- NOTE | 2017-02-28 18:08 | RAD ---
HISTORY: Embolic stroke TECHNIQUE: Multiple transverse and longitudinal ultrasound images were obtained of the veins of the bilateral lower extremities using grayscale, color Doppler, and spectral Doppler imaging with and without compression and with augmentation. FINDINGS: VEINS: The common femoral vein, deep femoral vein, femoral vein and popliteal vein are compressible throughout their course, with normal flow on color Doppler imaging and normal response to augmentation on spectral Doppler imaging. SOFT TISSUES: Grossly normal. No large popliteal fossa cyst was identified. IMPRESSION: No sonographic evidence of deep vein thrombosis.
[2017-02-28] MEDS ORDERED: Atorvastatin* 40 MG TAB PO SCH (21:00)
[2017-03-01] MEDS: Insulin LISPRO* 1 UNITS UNIT SUBCUT SCH ×2 (09:45→13:20)
[2017-03-01] MEDS: Metoprolol Tartrate TAB* 25 MG PO SCH (09:46)
[2017-03-01] MEDS: Clopidogrel TAB* 75 MG PO SCH (09:46)
[2017-03-01] MEDS: Aspirin Low Dose CHEW TAB* 81 MG PO SCH (09:46)
[2017-03-01] MEDS: amLODIPine TAB* 5 MG PO SCH (09:46)
[2017-03-01 15:45] VITALS: BP 120/93
--- NOTE | 2017-03-01 15:53 | DS ---
CC: Dr. Tennille Vega; Dr. Daniel Sprague * DATE OF ADMISSION: 02/25/2017. DATE OF DISCHARGE: 03/01/2017. ADMISSION DIAGNOSES: Altered mental status, toxic metabolic encephalopathy, recent CVA, hypertension, diabetes, prostate cancer, hyperlipidemia, anxiety, depression, hypokalemia, hyponatremia. DISCHARGE DIAGNOSES: Altered mental status, toxic metabolic encephalopathy, recent CVA, hypertension, diabetes, prostate cancer, hyperlipidemia, anxiety, depression, hypokalemia, hyponatremia. HOSPITAL COURSE: The patient is a 62-year-old gentleman who six weeks prior to admission recently had a CVA. Apparently, that work-up was done at [facility]. The patient was quite vague when he came in. He had some right-sided weakness and was confused. Please see history and physical for further details. The patient was found to have a significantly elevated white blood cell count. A Neurology consult was obtained. Although a source was not clear, the patient was placed on Rocephin. He was hydrated. Neurology did see the patient and he did show right vertebral disease on a CT angiogram and he was placed on both aspirin and Plavix. The patient also had a PFO, but had no evidence of DVT's. As noted, the patient was started on Rocephin. The patient's white count which was 28,000 normalized by the date of discharge. It was not entirely clear what the reason for his elevated white count was. The patient returned back to baseline by the date of discharge. Again, the source was not clear. He could of have a viral infection. He had stopped his meds a few days prior to coming to the hospital. Nevertheless, he seemed to have stabilized and reached his baseline by the date of discharge. PHYSICAL EXAMINATION: On the date of discharge, temperature 99.2 degrees, heart rate 67 beats per minute, respiratory rate 16 breaths per minute, pulse ox 99 percent, blood pressure 126/68. HEENT: Normocephalic, atraumatic. Pupils equal, round and reactive to light. Moist mucus membranes. Neck supple. No JVD, bruits, palpable thyroid, or lymphadenopathy. Chest clear to auscultation and percussion bilaterally. Cardiovascular: S1 and S2 appreciated. Abdomen: Positive bowel sounds in all four quadrants. Soft, nontender, nondistended. Extremities: No cyanosis, clubbing or edema. +2 peripheral pulses bilaterally. Neuro: Alert and oriented times three. He does have a bit of an expressive aphasia. STUDIES DONE WHILE IN THE HOSPITAL: 1. Brain MRI, 02/25/2017: Impression: Multiple small areas of restricted diffusion with a left frontal and parietal periventricular white matter consistent with subacute nonhemorrhagic infarct. Extensive white matter changes in the periventricular and subcortical white matter bilaterally. While nonspecific, the differential includes chronic small vessel ischemic change, as well as sequela of previous infection or inflammation, including vasculitis, as well as advanced demyelinating disease. 2. Head CTA, 02/26/2017: Impression: Abrupt occlusion at the distal M1 segment of the left middle cerebral artery with relative diminutive arterial filling distally compared to the contralateral right hemisphere. Occlusion of the right vertebral artery from the third segment just before entering the foramen magnum through the remainder superior length. The basilar artery receives in-line flow from the left vertebral artery only. At least moderate appearing stenosis at the origin of the left vertebral artery. Mixed attenuation atherosclerosis at the carotid bulbs causes approximately 33 percent stenosis on the right and 29 percent stenosis on the left. There is a 1.7 cm triangular-shaped ground glass density in the anterolateral aspect of the right upper lobe of indeterminate clinical significance. A potential neoplastic process is not completely excluded, particularly if the patient has risk factors for lung cancer (i.e. smoking). There is a 7 mm hypodensity in the right lobe of the thyroid that is of doubtful clinical significance. Further characterization can be made with thyroid ultrasound on a nonemergent basis. 3. Cervical spine CT, 02/25/2017: Impression: Degenerative disk disease and osteoarthritis. Mild narrowing of the central canal at C4-5 and C5-6. Multilevel neural foraminal narrowing as described above. 4. Chest x-ray, 02/25/2017: Impression: No active cardiopulmonary disease is noted. 5. Brain CT, 02/25/2017: Impression: Central and cortical atrophy. Periventricular lucency and subcortical lucency consistent with chronic ischemic white matter change. Paranasal sinuses are clear. 6. Transthoracic echocardiogram, 02/26/2017: Impression: Global left ventricular wall motion and contractility are within normal limits. Normal left ventricular systolic function. Estimated ejection fraction is 60 to 65 percent. E to A reversal in the mitral valve flow pattern suggestive of diastolic dysfunction. Likely small patent foramen ovale is demonstrated by agitated Contrast. There is mild aortic regurg. There is mild mitral regurg. There is trace tricuspid regurg. DISCHARGE MEDICATIONS: 1. Amlodipine 10 mg daily. 2. Lipitor 20 mg daily. 3. Buspirone 10 mg twice daily. 4. Bupropion 150 mg twice daily. 5. Losartan 50 mg daily. 6. Gabapentin 600 mg at bedtime and 100 mg in the morning. 7. Bupropion 300 mg daily. 8. Metformin 500 mg twice daily. 9. Omeprazole 20 mg twice daily. 10. Multivitamin one tablet daily. 11. Mirtazapine 50 mg at bedtime. 12. Metoprolol Tartrate 25 mg twice daily. 13. [place] Carbonate 300 mg at bedtime. 14. Lantus insulin 50 units subcu twice daily. 15. NovoLog FlexPen 9 units subcu 3 times a day with meals. 16. Clonidine 0.2 mg patch q.7 days. 17. Plavix 75 mg daily. 18. Aspirin 81 mg daily. DISCHARGE PLAN: The patient will be discharged back to the [facility] facility. She can return to the ED if symptoms recur. It should be noted that the patient should have a follow-up on his lung CT which showed concerning density that could be neoplastic and also recommend a thyroid ultrasound on follow-up is his thyroid gland. More than 45 minutes were spent on this discharge and more than 25 minutes of which were spent in direct [id number] contact with the patient in evaluation, physical exam, counseling and coordination of care. [id number]/[facility] #: [id number] [place]
== END 2017-03-01 15:53 | DRG 64 ==
LOC: ED 11:53 → MEDTELE 14:13
PROVIDERS: ADMIT Hospitalist; ATTEND Internal Medicine
DX: I63.9 Cerebral infarction, unspecified (principal); G92 Toxic encephalopathy; R65.10 Systemic inflammatory response syndrome (SIRS) of non-infectious origin without acute organ dysfunction; E87.1 Hypo-osmolality and hyponatremia; I08.3 Combined rheumatic disorders of mitral, aortic and tricuspid valves; E86.0 Dehydration; G81.91 Hemiplegia, unspecified affecting right dominant side; R47.01 Aphasia; E11.9 Type 2 diabetes mellitus without complications; E78.5 Hyperlipidemia, unspecified; D64.9 Anemia, unspecified; I10 Essential (primary) hypertension; K21.9 Gastro-esophageal reflux disease without esophagitis; F31.9 Bipolar disorder, unspecified; F41.9 Anxiety disorder, unspecified; F12.90 Cannabis use, unspecified, uncomplicated; R74.8 Abnormal levels of other serum enzymes; E87.6 Hypokalemia; R23.3 Spontaneous ecchymoses; F90.9 Attention-deficit hyperactivity disorder, unspecified type; R29.704 NIHSS score 4; Z60.2 Problems related to living alone; F17.200 Nicotine dependence, unspecified, uncomplicated; M50.30 Other cervical disc degeneration, unspecified cervical region; M47.9 Spondylosis, unspecified; Z79.4 Long term (current) use of insulin; Z79.82 Long term (current) use of aspirin; Z85.46 Personal history of malignant neoplasm of prostate; Z90.79 Acquired absence of other genital organ(s); Z88.8 Allergy status to other drugs, medicaments and biological substances; Z81.8 Family history of other mental and behavioral disorders; Z23 Encounter for immunization; Z79.02 Long term (current) use of antithrombotics/antiplatelets
CPT/HCPCS: 36415; 70450; 70496; 70498; 70551; 71010; 72125; 80048; 80053; 80061; 80178; 80307; 80320; 81003; 81015; 82140; 82550; 82803; 83516; 83605; 83735; 84439; 84443; 84484; 85025; 85610; 85652; 85730; 86140; 86703; 86850; 86900; 86901; 87040; 87502; 90686; 90732; 93005; 93306; 93970; A9270-GY; G0480; J0696; J0780; J3411; J3480; Q9967